=== PATIENT | female | born 1935 | race Caucasian/White ===

== ENCOUNTER 2024-02-28 19:43 | Inpatient (IN) | payer OTHER, MEDICARE ==
--- OUTSIDE RECORDS SUMMARY | 2024-02-28 19:49 | XMS REPORT | Continuity of Care Document ---
Author Name Unknown Address [address] [facility]. [address] [place] [address] [facility] thconnect Address [address] [facility] [address] [place] [address] Care Team Providers Care Signing Agent Name Role Phone KIRBY MARMOLEJO Primary Care Physician Unavaila Marvin Krueger Attending Clinician Unavailable KG WATTERS Attending Clinician Unavailable Mary Kay Cam Attending Clinician Unavailable GERARDO PADILLA Attending Clinician Unavail able Gerardo Padilla DPM Attending Clinician [phone] MAR_MATTHEW_Dorina Attending Clinician Unavailab JEANETTE Hall Attending Clinician Unavailable PB LEWIS Attending Clinician Unavailable Pcp-Non Staff, Attending Clinician UnavailNAOMI Allen Attending Clinician UnavailMERCEDES Cornejo Attending Clinician Unavail able CHUCK YIN Attending Clinician Unavailable Qamar Gutiérrez Admitting Clinician Unavailable KG WATTERS Admitting Clinician Unavailable Mary Kay Cam Admitting Clinician Unavailable MAR_SWHAWPRC_Dorina Admitting Clinician Unavailab JEANETTE Hall Admitting Clinician Unavailable NAOMI AYALA Admitting Clinician UnavailMERCEDES Cornejo Admitting Clinician Unavail able Payers Payer Name Policy Type Policy Number Effective Date Expirati on Date Source 1 Yenifer [id number] MEDICARE PART A AND B Medicare [id number] 2023 00:00:00 A[employer] Other [id number] 2023 00:00:00 [place] [employer] [id number] 2000 00:00:00 [employer] HEALTHCARE OPTIONS (MEDICARE SUPPLEMENT) [id number] 2023 00:00:00 2 C [id number] Problems Condition Name Condition Details Condition Category Status Onset Date Resolution Date Last Treatment Date Treating Clinician Comments Source 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 Problem Active 08-02 00:00: 00 [facility] 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 Muscle Dysfunctio n - Overactive Problem Active 08-02 00:00: 00 [facility] [id number] Other spondylosi s, lumbar region Problem [facility] [id number] [place], post-strok e Problem [facility] Chronic pain syndrome Chronic pain syndrome Problem [facility] Lumbar radiculopa thy Problem Active [facility] [place] Cerebrovas cular accident (CVA) Problem Active [facility] Hypertensi on Problem Active [facility] Hyperlipid emia Problem Active [facility] Left upper extremity numbness Problem Inactiv e [facility] [place] Facial droop Problem Inactiv e [facility] Health Allergies, Adverse Reactions, Alerts Allergy Name Allergy Type Status Severity Reaction(s) Onset Date Inactive Date Treating Clinician Comments Source aspirin DA Active [facility] CONTRAINDICA MARICRUZ/NO BLOOD THINNING DRUGS 2023-04 00:00: 00 [facility] dexameth asone DA Active SV CONTRAINDICA MARICRUZ/NO BLOOD THINNING DRUGS 2023-04 00:00: 00 [facility] nabumeto ne DA Active SV CONTRAINDICA MARICRUZ/NO BLOOD THINNING DRUGS 2023-04 015 00:00: 00 [facility] fish oil FA Active SV CONTRAINDICA MARICRUZ/NO BLOOD THINNING DRUGS 2023-04 015 00:00: 00 [facility] aspirin DA Active U UNKNOWN 2023-04 0-02 00:00: 00 [facility] dexameth asone DA Active U UNKNOWN 2023-04 0-02 00:00: 00 [facility] nabumeto ne DA Active U UNKNOWN 2023-04 002 00:00: 00 [facility] fish oil FA Active U UNKNOWN 2023-04 002 00:00: 00 [facility] GABAPENT IN Drug Allergy Active U Not Specified 2022-04 13:34: 55 [facility] GABAPENT IN Drug Allergy Active U Not Specified 2022-04 13:34: 55 [facility] GABAPENT IN Drug Allergy Active U Not Specified 2022-04 13:34: 55 [facility] [facility] GABAPENT IN Drug Allergy Active U Not Specified 2022-04 13:34: 55 [facility] Dyazide Drug Allergy Active U Not Specified 2022-04 13:34: 54 [facility] [facility] Relafen Drug Allergy Active U Not Specified 2022-04 13:34: 54 [facility] [facility] No Known Allergie s NA Active 06-09 16:22: 57 [facility] [facility] No Known Allergie s NA Active 06-09 16:19: 02 [facility] No Known Allergie s NA Active 06-09 16:16: 13 [facility] No Known Allergie s NA Active 06-09 15:45: 46 [facility] [facility] No Known Allergie s NA Active 2-20 15:45: 32 [facility] [place] HCTZ Drug Allergy Active U unknown 2-20 00:00: 00 [facility] [place] HCTZ Drug Allergy Active U unknown 220 00:00: 00 [facility] [place] HCTZ Drug Allergy Active U unknown 2- 00:00: 00 [facility] [place] HCTZ Drug Allergy Active U unknown 2 00:00: 00 [facility] [place] HCTZ Drug Allergy Active U unknown 2 00:00: 00 [facility] [place] HCTZ Drug Allergy Active U unknown 06-09 00:00: 00 [facility] [place] HCTZ Drug Allergy Active U unknown 2 00:00: 00 [facility] [place] NABUMETO NE Drug Allergy Active U unknown 220 00:00: 00 [facility] [place] TRIAMTER SAM Drug Allergy Active U unknown 220 00:00: 00 [facility] [place] GABAPENT IN Drug Allergy Active U ankle sweliing dry mouth 220 00:00: 00 [facility] [place] HCTZ Drug Allergy Active U unknown 2-20 00:00: 00 [facility] [place] HCTZ Drug Allergy Active U unknown 2-20 00:00: 00 [facility] [place] HCTZ Drug Allergy Active U unknown 2-20 00:00: 00 [facility] [place] HCTZ Drug Allergy Active U unknown 2-20 00:00: 00 [facility] [place] HCTZ Drug Allergy Active U unknown 2-20 00:00: 00 [facility] [place] HCTZ Drug Allergy Active U unknown 2-20 00:00: 00 [facility] HCTZ Drug Allergy Active U unknown 2-20 00:00: 00 [facility] [place] HCTZ Drug Allergy Active U unknown 2-20 00:00: 00 [facility] [place] HCTZ Drug Allergy Active U unknown 2-20 00:00: 00 [facility] [place] HCTZ Drug Allergy Active U unknown 2-20 00:00: 00 [facility] [place] HCTZ Drug Allergy Active U unknown 2-20 00:00: 00 [facility] [place] HCTZ Drug Allergy Active U unknown 2-20 00:00: 00 [facility] [place] HCTZ Drug Allergy Active U unknown 2-20 00:00: 00 [facility] [place] HCTZ Drug Allergy Active U unknown 2-20 00:00: 00 [facility] [place] HCTZ Drug Allergy Active U unknown 2-20 00:00: 00 [facility] [place] HCTZ Drug Allergy Active U unknown 2-20 00:00: 00 [facility] [place] HCTZ Drug Allergy Active U unknown 2-20 00:00: 00 [facility] [place] HCTZ Drug Allergy Active U unknown 2-20 00:00: 00 [facility] [place] HCTZ Drug Allergy Active U unknown 2-20 00:00: 00 [facility] [place] HCTZ Drug Allergy Active U unknown 2-20 00:00: 00 [facility] [place] HCTZ Drug Allergy Active U unknown 2-20 00:00: 00 [facility] [place] HCTZ Drug Allergy Active U unknown 2-20 00:00: 00 [facility] HCTZ Drug Allergy Active U unknown 2-20 00:00: 00 [facility] [place] HCTZ Drug Allergy Active U unknown 2-20 00:00: 00 [facility] [place] HCTZ Drug Allergy Active U unknown 2-20 00:00: 00 [facility] [place] HCTZ Drug Allergy Active U unknown 2-20 00:00: 00 [facility] [place] HCTZ Drug Allergy Active U unknown 2-20 00:00: 00 [facility] [place] HCTZ Drug Allergy Active U unknown 2-20 00:00: 00 [facility] [place] HCTZ Drug Allergy Active U unknown 2-20 00:00: 00 [facility] [place] Hydrochl orothiaz jovan Allergy to substanc e Active Unknown 2-12 00:00: 00 [facility] Triamter sam Allergy to substanc e Active Unknown 2-12 00:00: 00 [facility] Nabumeto ne Allergy to substanc e Active Unknown 2-12 00:00: 00 [facility] Gabapent in Propensi ty to adverse reaction s Active Moderate 0 2-12 00:00: 00 [facility] ALLERGIE S NOT ON FILE SYSTEMIC Active [facility] Non-ster oidal anti-inf lammator y agent (FN) Non-ster oidal anti-inf lammator y agent (FN) Active Unknown [facility] nabumeto ne nabumeto ne Active Unknown [facility] rizatrip montez rizatrip montez Active Unknown [facility] ALLERGIE S NOT ON FILE SYSTEMIC Active [facility] Aspirin Allergy to substanc e Active [facility] Fish Oil Allergy to substanc e Active [facility] Maxidex Allergy to substanc e Active [facility] Relafen Allergy to substanc e Active [facility] Social History Social Habit Start Date Stop Date Quantity Comments Source Gender identity 2023-07-12 03:40:34 Identifies as female gender (finding) [facility] ASSERTION Possible [facility] Sexual orientation M ruba [facility] Sex Assigned At [facility] History of Tobacco Use [facility] Smoking Status Start Date Stop Date Source Tobacco smoking consumption unknown [facility] Never Smoker [facility] Medications Ordered Medication Name Filled Medication Name Start Date Stop Date Current Medication? Ordering Clinician Indication Dosage Frequency Signature (SIG) Comments Components Source traMADol HCl 50 MG traMADol HCl 50 MG 08-05 00:00: 00 No 1{table t_as_ne eded} QD traMADol HCl 50 MG Clopidogrel Bisulfate (Plavix) 75 Mg TAB 2 12:25: 00 No 75mg Daily [facility] amlodipine 5 mg tablet TAKE 1 TABLET BY MOUTH DAILY amlodipine 5 mg tablet TAKE 1 TABLET BY MOUTH DAILY No amlodipine 5 mg tablet TAKE 1 TABLET BY MOUTH DAILY [facility] biotin biotin No biotin [facility] Q-10 Co Q-10 No Co Q-10 [facility] levothyroxi ne levothyroxi ne No levothyrox ine [facility] lisinopril 20 mg tablet TAKE 1 TABLET BY MOUTH TWICE DAILY lisinopril 20 mg tablet TAKE 1 TABLET BY MOUTH TWICE DAILY No lisinopril 20 mg tablet TAKE 1 TABLET BY MOUTH TWICE DAILY [facility] melatonin melatonin No melatonin [facility] Metamucil Metamucil No Metamucil [facility] One Daily Womens 50 Plus One Daily Womens 50 Plus No One Daily Womens 50 Plus [facility] pantoprazol e 40 mg tablet,ramona yed release pantoprazol e 40 mg tablet,ramona yed release No pantoprazo le 40 mg tablet,del ayed release [facility] ropinirole 1 mg tablet TAKE 1 TABLET BY MOUTH EVERY NIGHT AT BEDTIME ropinirole 1 mg tablet TAKE 1 TABLET BY MOUTH EVERY NIGHT AT BEDTIME No ropinirole 1 mg tablet TAKE 1 TABLET BY MOUTH EVERY NIGHT AT BEDTIME [facility] simvastatin 20 mg tablet TAKE 1 TABLET BY MOUTH EVERY NIGHT AT BEDTIME simvastatin 20 mg tablet TAKE 1 TABLET BY MOUTH EVERY NIGHT AT BEDTIME No simvastati n 20 mg tablet TAKE 1 TABLET BY MOUTH EVERY NIGHT AT BEDTIME [facility] Tylenol Arthritis Pain Tylenol Arthritis Pain No Tylenol Arthritis Pain [facility] Vitamin D3 Vitamin D3 No Vitamin D3 [facility] gabapentin 300 mg capsule TAKE 1 CAPSULE BY MOUTH TWICE DAILY gabapentin 300 mg capsule TAKE 1 CAPSULE BY MOUTH TWICE DAILY No gabapentin 300 mg capsule TAKE 1 CAPSULE BY MOUTH TWICE DAILY [facility] tramadol 50 mg tablet TAKE 1 TABLET BY MOUTH DAILY NEEDED tramadol 50 mg tablet TAKE 1 TABLET BY MOUTH DAILY NEEDED No tramadol 50 mg tablet TAKE 1 TABLET BY MOUTH DAILY NEEDED [facility] spironolact one 25 mg tablet TAKE 1 TABLET BY MOUTH DAILY spironolact one 25 mg tablet TAKE 1 TABLET BY MOUTH DAILY No spironolac tone 25 mg tablet TAKE 1 TABLET BY MOUTH DAILY [facility] baclofen 10 mg tablet TAKE 1 TABLET BY MOUTH AT BEDTIME baclofen 10 mg tablet TAKE 1 TABLET BY MOUTH AT BEDTIME No baclofen 10 mg tablet TAKE 1 TABLET BY MOUTH AT BEDTIME [facility] escitalopra m 5 mg tablet TAKE 1 TABLET BY MOUTH EVERY DAY escitalopra m 5 mg tablet TAKE 1 TABLET BY MOUTH EVERY DAY No escitalopr am 5 mg tablet TAKE 1 TABLET BY MOUTH EVERY DAY [facility] levothyroxi ne 50 mcg tablet TAKE 1 TABLET BY MOUTH DAILY 30 MINUTES BEFORE BREAKFAST levothyroxi ne 50 mcg tablet TAKE 1 TABLET BY MOUTH DAILY 30 MINUTES BEFORE BREAKFAST No levothyrox ine 50 mcg tablet TAKE 1 TABLET BY MOUTH DAILY 30 MINUTES BEFORE BREAKFAST [facility] Acetaminoph en (Tylenol) 500 Mg TAB No 500mg Twice A Day as needed for Pain [facility] Acetaminoph en/Diphenhy dramine Hcl (Tylenol Pm Es) 1 Each TAB No 1 Bedtime [facility] Baclofen (Lioresal) 10 Mg TAB No 10mg Every Evening [facility] Biotin No 2000 Daily [facility] Calcium/Vit cruz D (Calcium 600 + Vit D 400 Tablet) 600 Mg TAB No 600mg Every Other Day [facility] Clonidine (Catapres) 0.1 Mg TAB No .1mg Every 12 Hours as needed for Bp >160/100 [facility] Coenzyme Q10 No 100mg Daily [facility] Fish Oil (Santo 3) 1,000 Mg CAP No 2000mg Daily [facility] Fluticasone Propionate (Flonase 0.05% Jarocho Spr) 16 Gm INHA No 1 Twice A Day [facility] Guaifenesin (Mucinex) 600 Mg TABCR No 600mg Every 12 Hours as needed for Congestion [facility] Levothyroxi ne Sodium (Synthroid) 50 Mcg TABLET No 50 Daily Before Breakfast [facility] Lisinopril (Zestril) 20 Mg TAB No 20mg Twice A Day [facility] Melatonin No 5mg Bedtime as needed for Insomnia [facility] Multivitami ns/Minerals (Centrum Silver) 1 Tab TABLET No 1 Daily [facility] Propranolol Hcl (Inderal) 80 Mg TAB No 80mg Every Morning [facility] Ropinirole Hcl (Requip) 1 Mg TAB No 1mg Bedtime [facility] Simvastatin (Zocor) 20 Mg TAB No 20mg Every Evening [facility] Spironolact one (Aldactone) 25 Mg TAB No 25mg Every Morning [facility] Baclofen 10 MG Baclofen 10 MG No Baclofen 10 MG rOPINIRole HCl 1 MG rOPINIRole HCl 1 MG No rOPINIRole HCl 1 MG Synthroid 50 MCG Synthroid 50 MCG No Synthroid 50 MCG Escitalopra m Oxalate 5 MG Escitalopra m Oxalate 5 MG No Escitalopr am Oxalate 5 MG Simvastatin 20 MG Simvastatin 20 MG No Simvastati n 20 MG amLODIPine Besylate 5 MG amLODIPine Besylate 5 MG No amLODIPine Besylate 5 MG Gabapentin 300 MG Gabapentin 300 MG No 1{capsu le} TID Gabapentin 300 MG Lisinopril 20 MG Lisinopril 20 MG No Lisinopril 20 MG Spironolact one 25 MG Spironolact one 25 MG No Spironolac tone 25 MG Vitamin D 06-09 00:00 :00 No 25 Daily [facility] Excedrin Migraine 06-09 00:00 :00 No 1 Daily as needed for Headache [facility] Lisinopril (Zestril) 5 Mg TAB 05-31 00:00 :00 No 10mg Bedtime [facility] A Red 05-31 00:00 :00 No 1 Twice A Day [facility] Levoxyl 05-31 00:00 :00 No 50 Daily [facility] Losartan Potassium (Cozaar) 100 Mg TAB 06-01 00:00 :00 No 100mg Daily [facility] Potassium Chloride (Klor-Con 10) 10 Meq TABCR 06-01 00:00 :00 No 20 Daily [facility] Aspirin (Aspirin Chewable) 81 Mg CHEW 06-01 00:00 :00 No 81mg Daily [facility] Flaxseed (Flaxseed Oil) 1,000 Mg CAP 06-01 00:00 :00 No 1000mg Daily [facility] Vital Signs Vital Name Observation Time Observation Value Comments S justa height 2023-11-18 15:15:00 66 [in_i] [facility] weight-kg 2023-11-18 15:15:00 56.7 kg [facility] bmi 2023-11-18 15:15:00 20.17 kg/m2 [facility] heart rate 2023-11-18 15:15:00 80 /min [facility] blood pressure systolic 2023-11-18 15:15:00 124 mm[Hg] [facility] blood pressure diastolic 2023-11-18 15:15:00 79 mm[Hg] [facility] Height 2023-09-08 00:00:00 66 [in_i] [facility] BMI (Body Mass Index) 2023-09-08 00:00:00 20.5 kg/m2 [facility] BP Diastolic 2023-09-08 00:00:00 83 mm[Hg] [facility] Body Weight 2023-09-08 00:00:00 127 [lb_av] [facility] BP Systolic 2023-09-08 00:00:00 121 mm[Hg] [facility] Body Weight 2023-08-18 00:00:00 125 [lb_av] [facility] BP Diastolic 2023-08-18 00:00:00 79 mm[Hg] [facility] BP Systolic 2023-08-18 00:00:00 138 mm[Hg] [facility] BMI (Body Mass Index) 2023-08-18 00:00:00 20.2 kg/m2 [facility] Height 2023-08-18 00:00:00 66 [in_i] [facility] Height 2023-08-03 00:00:00 66 [in_i] [facility] BMI (Body Mass Index) 2023-08-03 00:00:00 20.2 kg/m2 [facility] Body Weight 2023-08-03 00:00:00 125 [lb_av] [facility] BP Diastolic 2023-08-03 00:00:00 85 mm[Hg] [facility] BP Systolic 2023-08-03 00:00:00 127 mm[Hg] [facility] BP Diastolic 2020-06-09 12:00:00 84 mm[Hg] [facility] [employer] BP Systolic 2020-06-09 12:00:00 149 mm[Hg] [facility] [employer] Heart Rate 2020-06-09 12:00:00 66 /min [employer] Respiratory rate 2020-06-09 12:00:00 13 /min [employer] Body Temperature 2020-06-09 12:00:00 97.9 [degF] [facility] BP Diastolic 2020-06-09 07:00:00 79 mm[Hg] [facility] [employer] BP Systolic 2020-06-09 07:00:00 123 mm[Hg] [facility] [employer] Heart Rate 2020-06-09 07:00:00 75 /min [employer] Respiratory rate 2020-06-09 07:00:00 15 /min [employer] Body Temperature 2020-06-09 07:00:00 98.1 [degF] [facility] [employer] BP Diastolic 2020-06-09 06:15:00 86 mm[Hg] [facility] [employer] BP Systolic 2020-06-09 06:15:00 163 mm[Hg] [facility] [employer] BP Diastolic 2020-06-09 04:00:00 80 mm[Hg] [facility] [employer] BP Systolic 2020-06-09 04:00:00 164 mm[Hg] [facility] [employer] Heart Rate 2020-06-09 04:00:00 85 /min [employer] Respiratory rate 2020-06-09 04:00:00 20 /min [employer] Body Temperature 2020-06-09 04:00:00 97.8 [degF] [facility] BP Diastolic 2020-06-09 00:00:00 87 mm[Hg] [facility] [employer] BP Systolic 2020-06-09 00:00:00 154 mm[Hg] [facility] Heart Rate 2020-06-09 00:00:00 72 /min [employer] Respiratory rate 2020-06-09 00:00:00 20 /min [facility] Body Temperature 2020-06-09 00:00:00 97.6 [degF] [facility] BP Diastolic 2020-06-08 20:00:00 89 mm[Hg] [facility] BP Systolic 2020-06-08 20:00:00 159 mm[Hg] [facility] Heart Rate 2020-06-08 20:00:00 68 /min [facility] Respiratory rate 2020-06-08 20:00:00 20 /min [facility] Body Temperature 2020-06-08 20:00:00 97.6 [degF] [facility] BP Diastolic 2020-06-08 11:00:00 97 mm[Hg] [facility] BP Systolic 2020-06-08 11:00:00 177 mm[Hg] [facility] Heart Rate 2020-06-08 11:00:00 66 /min [facility] Respiratory rate 2020-06-08 11:00:00 12 /min [facility] Body Temperature 2020-06-08 11:00:00 98.0 [degF] [facility] BP Diastolic 2020-06-08 07:00:00 91 mm[Hg] [facility] BP Systolic 2020-06-08 07:00:00 157 mm[Hg] [facility] Heart Rate 2020-06-08 07:00:00 77 /min [facility] rate 2020-06-08 07:00:00 15 /min [facility] Body Temperature 2020-06-08 07:00:00 98.2 [degF] [facility] BP Diastolic 2020-06-08 04:00:00 76 mm[Hg] [facility] BP Systolic 2020-06-08 04:00:00 126 mm[Hg] [facility] Heart Rate 2020-06-08 04:00:00 83 /min [facility] Respiratory rate 2020-06-08 04:00:00 20 /min [facility] Body Temperature 2020-06-08 04:00:00 97.8 [degF] [facility] BP Diastolic 2020-06-08 00:00:00 85 mm[Hg] [facility] BP Systolic 2020-06-08 00:00:00 145 mm[Hg] [facility] Heart Rate 2020-06-08 00:00:00 76 /min [facility] Respiratory rate 2020-06-08 00:00:00 20 /min [facility] Body Temperature 2020-06-08 00:00:00 97.8 [degF] [facility] BP Diastolic 2020-06-07 20:00:00 85 mm[Hg] [facility] BP Systolic 2020-06-07 20:00:00 169 mm[Hg] [facility] Heart Rate 2020-06-07 20:00:00 72 /min [facility] Respiratory rate 2020-06-07 20:00:00 20 /min [facility] Body Temperature 2020-06-07 20:00:00 97.2 [degF] [facility] BP Diastolic 2020-06-07 17:09:00 77 mm[Hg] [facility] BP Systolic 2020-06-07 17:09:00 123 mm[Hg] [facility] Heart Rate 2020-06-07 17:09:00 67 /min [facility] Respiratory rate 2020-06-07 17:09:00 18 /min [facility] Body Temperature 2020-06-07 17:09:00 98.4 [degF] [facility] BP Diastolic 2020-06-07 14:27:00 80 mm[Hg] [facility] BP Systolic 2020-06-07 14:27:00 169 mm[Hg] [facility] BP Diastolic 2020-06-07 12:00:00 93 mm[Hg] [facility] [facility] BP Systolic 2020-06-07 12:00:00 167 mm[Hg] [facility] Heart Rate 2020-06-07 12:00:00 81 /min [facility] Respiratory rate 2020-06-07 12:00:00 16 /min [facility] Body Temperature 2020-06-07 12:00:00 98.4 [degF] [facility] Heart Rate 2020-06-07 10:00:00 81 /min [facility] BP Diastolic 2020-06-07 08:00:00 80 mm[Hg] [facility] BP Systolic 2020-06-07 08:00:00 184 mm[Hg] [facility] Heart Rate 2020-06-07 08:00:00 103 /min [facility] Respiratory rate 2020-06-07 08:00:00 20 /min [facility] Body Temperature 2020-06-07 08:00:00 98.0 [degF] [facility] BP Diastolic 2020-06-07 04:00:00 77 mm[Hg] [facility] BP Systolic 2020-06-07 04:00:00 166 mm[Hg] [facility] Heart Rate 2020-06-07 04:00:00 99 /min [facility] Respiratory rate 2020-06-07 04:00:00 20 /min [facility] Body Temperature 2020-06-07 04:00:00 98.2 [degF] [facility] BP Diastolic 2020-06-07 00:00:00 83 mm[Hg] [facility] BP Systolic 2020-06-07 00:00:00 168 mm[Hg] [facility] Heart [facility] 2020-06-07 00:00:00 90 /min [facility] Respiratory rate 2020-06-07 00:00:00 20 /min [facility] Body Temperature 2020-06-07 00:00:00 97.8 [degF] [facility] BP Diastolic 2020-06-06 20:00:00 96 mm[Hg] [facility] BP Systolic 2020-06-06 20:00:00 188 mm[Hg] [facility] Heart Rate 2020-06-06 20:00:00 84 /min [facility] Respiratory rate 2020-06-06 20:00:00 20 /min [facility] Body Temperature 2020-06-06 20:00:00 98.6 [degF] [facility] BP Diastolic 2020-06-06 16:00:00 103 mm[Hg] [facility] BP Systolic 2020-06-06 16:00:00 200 mm[Hg] [facility] Heart Rate 2020-06-06 16:00:00 93 /min [facility] Respiratory rate 2020-06-06 16:00:00 16 /min [facility] Body Temperature 2020-06-06 16:00:00 98.2 [degF] [facility] BP Diastolic 2020-06-06 12:00:00 118 mm[Hg] [facility] BP Systolic 2020-06-06 12:00:00 210 mm[Hg] [facility] Heart Rate 2020-06-06 12:00:00 71 /min [facility] Respiratory rate 2020-06-06 12:00:00 18 /min [facility] Body Temperature 2020-06-06 12:00:00 97.9 [degF] [facility] BP Diastolic 2020-06-06 08:00:00 81 mm[Hg] [facility] BP Systolic 2020-06-06 08:00:00 188 mm[Hg] [facility] Heart [facility] 2020-06-06 08:00:00 96 /min [facility] Respiratory rate 2020-06-06 08:00:00 20 /min [facility] Body Temperature 2020-06-06 08:00:00 97.5 [degF] [facility] BP Diastolic 2020-06-06 04:00:00 80 mm[Hg] [facility] BP Systolic 2020-06-06 04:00:00 165 mm[Hg] [facility] Heart Rate 2020-06-06 04:00:00 86 /min [facility] Respiratory rate 2020-06-06 04:00:00 18 /min [facility] Body Temperature 2020-06-06 04:00:00 97.8 [degF] [facility] BP Diastolic 2020-06-06 00:00:00 81 mm[Hg] [facility] BP Systolic 2020-06-06 00:00:00 133 mm[Hg] [facility] Heart Rate 2020-06-06 00:00:00 71 /min [facility] Respiratory rate 2020-06-06 00:00:00 18 /min [facility] Body Temperature 2020-06-06 00:00:00 98.2 [degF] [facility] BP Diastolic 2020-06-05 20:00:00 92 mm[Hg] [facility] BP Systolic 2020-06-05 20:00:00 173 mm[Hg] [facility] Heart Rate 2020-06-05 20:00:00 77 /min [facility] Respiratory rate 2020-06-05 20:00:00 18 /min [facility] Body Temperature 2020-06-05 20:00:00 98.5 [degF] [facility] BP Diastolic 2020-06-05 16:00:00 96 mm[Hg] [facility] BP Systolic 2020-06-05 16:00:00 183 mm[Hg] [facility] Respiratory rate 2020-06-05 16:00:00 16 /min [facility] Body Temperature 2020-06-05 16:00:00 97.9 [degF] [facility] BP Diastolic 2020-06-05 12:00:00 89 mm[Hg] [facility] BP Systolic 2020-06-05 12:00:00 163 mm[Hg] [facility] Heart Rate 2020-06-05 12:00:00 87 /min [facility] Respiratory rate 2020-06-05 12:00:00 20 /min [facility] Body Temperature 2020-06-05 12:00:00 97.6 [degF] [facility] BP Diastolic 2020-06-05 08:00:00 109 mm[Hg] [facility] BP Systolic 2020-06-05 08:00:00 168 mm[Hg] [facility] Heart Rate 2020-06-05 08:00:00 80 /min [facility] Respiratory rate 2020-06-05 08:00:00 18 /min [facility] Body Temperature 2020-06-05 08:00:00 98.0 [degF] [facility] BP Diastolic 2020-06-05 04:00:00 91 mm[Hg] [facility] BP Systolic 2020-06-05 04:00:00 166 mm[Hg] [facility] Heart Rate 2020-06-05 04:00:00 78 /min [facility] Respiratory rate 2020-06-05 04:00:00 20 /min [facility] Body Temperature 2020-06-05 04:00:00 97.5 [degF] [facility] BP Diastolic 2020-06-05 00:00:00 79 mm[Hg] [facility] BP Systolic 2020-06-05 00:00:00 138 mm[Hg] [facility] BP Diastolic 2020-06-04 20:00:00 112 mm[Hg] [facility] BP Systolic 2020-06-04 20:00:00 198 mm[Hg] [facility] Heart Rate 2020-06-04 20:00:00 77 /min [facility] Respiratory rate 2020-06-04 20:00:00 20 /min [facility] Body Temperature 2020-06-04 20:00:00 97.9 [degF] [facility] BP Diastolic 2020-06-04 16:13:00 92 mm[Hg] [facility] BP Systolic 2020-06-04 16:13:00 186 mm[Hg] [facility] Heart Rate 2020-06-04 16:13:00 69 /min [facility] Respiratory rate 2020-06-04 16:13:00 22 /min [facility] Body Temperature 2020-06-04 16:13:00 98.2 [degF] [facility] BP Diastolic 2020-06-04 12:34:00 93 mm[Hg] [facility] BP Systolic 2020-06-04 12:34:00 172 mm[Hg] [facility] Heart [facility] 2020-06-04 12:34:00 68 /min [facility] Respiratory rate 2020-06-04 12:34:00 22 /min [facility] Body Temperature 2020-06-04 12:34:00 97.5 [degF] [facility] BP Diastolic 2020-06-04 04:00:00 95 mm[Hg] [facility] BP Systolic 2020-06-04 04:00:00 180 mm[Hg] [facility] Heart Rate 2020-06-04 04:00:00 80 /min [facility] Respiratory rate 2020-06-04 04:00:00 20 /min [facility] Body Temperature 2020-06-04 04:00:00 97.6 [degF] [facility] BP Diastolic 2020-06-04 00:00:00 88 mm[Hg] [facility] BP Systolic 2020-06-04 00:00:00 161 mm[Hg] [facility] Heart [facility] 2020-06-04 00:00:00 75 /min [facility] Respiratory rate 2020-06-04 00:00:00 20 /min [facility] Body Temperature 2020-06-04 00:00:00 97.9 [degF] [facility] BP Diastolic 2020-06-03 20:00:00 104 mm[Hg] [facility] BP Systolic 2020-06-03 20:00:00 214 mm[Hg] [facility] Heart Rate 2020-06-03 20:00:00 78 /min [facility] Respiratory rate 2020-06-03 20:00:00 20 /min [facility] Body Temperature 2020-06-03 20:00:00 97.9 [degF] [facility] BP Diastolic 2020-06-03 16:00:00 100 mm[Hg] [facility] BP Systolic 2020-06-03 16:00:00 180 mm[Hg] [facility] Heart [facility] 2020-06-03 16:00:00 90 /min [facility] Respiratory rate 2020-06-03 16:00:00 16 /min [facility] Body Temperature 2020-06-03 16:00:00 97.9 [degF] [facility] BP Diastolic 2020-06-03 13:51:00 103 mm[Hg] [facility] BP Systolic 2020-06-03 13:51:00 205 mm[Hg] [facility] Heart [facility] 2020-06-03 13:51:00 89 /min [facility] BP Diastolic 2020-06-03 13:14:00 99 mm[Hg] [email or web address] BP Systolic 2020-06-03 13:14:00 184 mm[Hg] [facility] BP Diastolic 2020-06-03 12:01:00 105 mm[Hg] [facility] BP Systolic 2020-06-03 12:01:00 180 mm[Hg] [facility] Heart Rate 2020-06-03 12:01:00 99 /min [facility] BP Diastolic 2020-06-03 09:14:00 97 mm[Hg] [facility] BP Systolic 2020-06-03 09:14:00 193 mm[Hg] [facility] Heart Rate 2020-06-03 09:14:00 102 /min [facility] Heart Rate 2020-06-03 08:05:00 96 /min [facility] BP Diastolic 2020-06-03 07:00:00 116 mm[Hg] [facility] BP Systolic 2020-06-03 07:00:00 216 mm[Hg] [facility] Heart Rate 2020-06-03 07:00:00 102 /min [facility] Respiratory rate 2020-06-03 07:00:00 20 /min [facility] Body Temperature 2020-06-03 07:00:00 97.7 [degF] [facility] BP Diastolic 2020-06-03 04:00:00 98 mm[Hg] [facility] BP Systolic 2020-06-03 04:00:00 165 mm[Hg] [facility] Heart [facility] 2020-06-03 04:00:00 100 /min [facility] Respiratory rate 2020-06-03 04:00:00 20 /min [facility] Body Temperature 2020-06-03 04:00:00 98.0 [degF] [facility] BP Diastolic 2020-06-03 00:00:00 118 mm[Hg] [facility] BP Systolic 2020-06-03 00:00:00 186 mm[Hg] [facility] Heart Rate 2020-06-03 00:00:00 114 /min [facility] Respiratory rate 2020-06-03 00:00:00 20 /min [facility] Body Temperature 2020-06-03 00:00:00 98.0 [degF] [facility] BP Diastolic 2020-06-02 20:00:00 109 mm[Hg] [facility] BP Systolic 2020-06-02 20:00:00 188 mm[Hg] [facility] Heart [facility] 2020-06-02 20:00:00 103 /min [facility] Respiratory rate 2020-06-02 20:00:00 20 /min [facility] Body Temperature 2020-06-02 20:00:00 97.6 [degF] [facility] BP Diastolic 2020-06-02 16:00:00 99 mm[Hg] [facility] BP Systolic 2020-06-02 16:00:00 182 mm[Hg] [facility] Heart Rate 2020-06-02 16:00:00 95 /min [facility] Respiratory rate 2020-06-02 16:00:00 20 /min [facility] Body Temperature 2020-06-02 16:00:00 97.6 [degF] [facility] BP Diastolic 2020-06-02 12:00:00 113 mm[Hg] [facility] BP Systolic 2020-06-02 12:00:00 185 mm[Hg] [facility] Heart Rate 2020-06-02 12:00:00 106 /min [facility] Respiratory rate 2020-06-02 12:00:00 18 /min [facility] Body Temperature 2020-06-02 12:00:00 97.7 [degF] [facility] Heart Rate 2020-06-02 08:45:00 112 /min [facility] BP Diastolic 2020-06-02 08:00:00 95 mm[Hg] [facility] BP Systolic 2020-06-02 08:00:00 155 mm[Hg] [facility] Heart [facility] 2020-06-02 08:00:00 100 /min [facility] 2020-06-02 08:00:00 20 /min [facility] Body Temperature 2020-06-02 08:00:00 98.2 [degF] [facility] BP Diastolic 2020-06-02 04:00:00 71 mm[Hg] [facility] BP Systolic 2020-06-02 04:00:00 110 mm[Hg] [facility] Heart Rate 2020-06-02 04:00:00 88 /min [facility] Respiratory rate 2020-06-02 04:00:00 18 /min [facility] Body Temperature 2020-06-02 04:00:00 97.6 [degF] [facility] BP Diastolic 2020-06-02 00:00:00 91 mm[Hg] [facility] BP Systolic 2020-06-02 00:00:00 171 mm[Hg] [facility] Heart Rate 2020-06-02 00:00:00 84 /min [facility] Respiratory rate 2020-06-02 00:00:00 18 /min [facility] Body Temperature 2020-06-02 00:00:00 97.4 [degF] [facility] BP Diastolic 2020-06-01 20:00:00 99 mm[Hg] [facility] BP Systolic 2020-06-01 20:00:00 155 mm[Hg] [facility] Heart Rate 2020-06-01 20:00:00 93 /min [facility] Respiratory rate 2020-06-01 20:00:00 22 /min [facility] Body Temperature 2020-06-01 20:00:00 98.3 [degF] [facility] BP Diastolic 2020-06-01 16:00:00 87 mm[Hg] [facility] BP Systolic 2020-06-01 16:00:00 152 mm[Hg] [facility] Heart [facility] 2020-06-01 16:00:00 76 /min [facility] Respiratory rate 2020-06-01 16:00:00 18 /min [facility] Body Temperature 2020-06-01 16:00:00 97.6 [degF] [facility] BP Diastolic 2020-06-01 12:00:00 91 mm[Hg] [facility] BP Systolic 2020-06-01 12:00:00 161 mm[Hg] [facility] Heart Rate 2020-06-01 12:00:00 83 /min [facility] Respiratory rate 2020-06-01 12:00:00 20 /min [facility] Body Temperature 2020-06-01 12:00:00 98.8 [degF] [facility] BP Diastolic 2020-06-01 08:00:00 81 mm[Hg] [facility] BP Systolic 2020-06-01 08:00:00 137 mm[Hg] [facility] Heart [facility] 2020-06-01 08:00:00 87 /min [facility] Respiratory rate 2020-06-01 08:00:00 20 /min [facility] Body Temperature 2020-06-01 08:00:00 97.4 [degF] [facility] BP Diastolic 2020-06-01 04:00:00 73 mm[Hg] [facility] BP Systolic 2020-06-01 04:00:00 119 mm[Hg] [facility] Heart [facility] 2020-06-01 04:00:00 80 /min [facility] Respiratory rate 2020-06-01 04:00:00 18 /min [facility] Body Temperature 2020-06-01 04:00:00 97.5 [degF] [facility] BP Diastolic 2020-06-01 00:00:00 111 mm[Hg] [facility] BP Systolic 2020-06-01 00:00:00 203 mm[Hg] [facility] Heart [facility] 2020-06-01 00:00:00 102 /min [facility] Respiratory rate 2020-06-01 00:00:00 18 /min [facility] Body Temperature 2020-06-01 00:00:00 97.9 [degF] [facility] BP Diastolic 2020-05-31 20:00:00 90 mm[Hg] [facility] BP Systolic 2020-05-31 20:00:00 176 mm[Hg] [facility] Heart Rate 2020-05-31 20:00:00 79 /min [facility] 2020-05-31 20:00:00 18 /min [facility] Body Temperature 2020-05-31 20:00:00 97.7 [degF] [facility] BP Diastolic 2020-05-31 11:00:00 89 mm[Hg] [facility] BP Systolic 2020-05-31 11:00:00 158 mm[Hg] [facility] Heart Rate 2020-05-31 11:00:00 71 /min [facility] 2020-05-31 11:00:00 17 /min [facility] Body Temperature 2020-05-31 11:00:00 97.8 [degF] [facility] BP Diastolic 2020-05-31 07:00:00 93 mm[Hg] [facility] BP Systolic 2020-05-31 07:00:00 169 mm[Hg] [facility] Heart Rate 2020-05-31 07:00:00 85 /min [facility] Respiratory rate 2020-05-31 07:00:00 13 /min [facility] Body Temperature 2020-05-31 07:00:00 97.3 [degF] [facility] BP Diastolic 2020-05-31 04:00:00 88 mm[Hg] [facility] BP Systolic 2020-05-31 04:00:00 176 mm[Hg] [facility] Heart Rate 2020-05-31 04:00:00 73 /min [facility] Respiratory rate 2020-05-31 04:00:00 20 /min [facility] Body Temperature 2020-05-31 04:00:00 97.3 [degF] [facility] Heart Rate 2020-05-31 02:30:00 64 /min [facility] BP Diastolic 2020-05-31 02:07:00 89 mm[Hg] [facility] BP Systolic 2020-05-31 02:07:00 151 mm[Hg] [facility] Heart Rate 2020-05-31 02:07:00 64 /min [facility] Respiratory rate 2020-05-31 02:07:00 14 /min [facility] BP Diastolic 2020-05-31 01:45:00 117 mm[Hg] [facility] BP Systolic 2020-05-31 01:45:00 209 mm[Hg] [facility] Heart [facility] 2020-05-31 01:45:00 83 /min [facility] Respiratory rate 2020-05-31 01:45:00 18 /min [facility] Body Temperature 2020-05-31 01:45:00 97.5 [degF] [facility] Heart Rate 2020-05-31 00:20:00 69 /min [facility] BP Diastolic 2020-05-30 23:57:00 122 mm[Hg] [facility] BP Systolic 2020-05-30 23:57:00 165 mm[Hg] [facility] Heart [facility] 2020-05-30 23:57:00 83 /min [facility] Respiratory rate 2020-05-30 23:57:00 19 /min [facility] Procedures Procedure Date / Time Performed Performing Clinician Source [id number] 2024-02-02 00:00:00 [facility] [id number] 2024-02-02 00:00:00 [facility] [id number] 2024-02-02 00:00:00 [facility] [id number] 2024-02-02 00:00:00 [facility] [id number] 2024-02-02 00:00:00 [facility] [id number] 2024-02-02 00:00:00 [facility] Computed tomography of head or brain without contrast 2020-06-05 00:00:00 [facility] Transthoracic two dimensional echocardiography with color Doppler imaging and contrast 2020-05-31 00:00:00 [facility] Magnetic resonance imaging of brain without contrast 2020-05-31 00:00:00 [facility] Computed tomography of head or brain without contrast 2020-05-31 00:00:00 [facility] Occupational therapy evaluation and treatment 2020-05-31 00:00:00 [facility] Physical therapy evaluation and treatment 2020-05-31 00:00:00 [facility] Speech therapy evaluation and treatment 2020-05-31 00:00:00 [facility] Computed tomography of head or brain without contrast 2020-05-30 00:00:[address] [facility] [address] angiography of head 2020-05-30 00:00:[address] [facility] [address] angiography of neck 2020-05-30 00:00:00 [facility] ECG (electrocardiogram) 2020-05-30 00:00:00 [facility] X-ray of chest, single view 2020-05-30 00:00:00 [facility] Discectomy of Spine 2019-04-20 00:00:00 [facility] Procedure on Bladder 2015-04-20 00:00:00 [facility] Procedure on Urinary Bladder 2015-04-20 00:00:00 [facility] Procedure on Brain 2013-04-20 00:00:00 [facility] Cataract Surgery 1999-04-20 00:00:00 [facility] Hysterectomy - Abdominal 1982-04-20 00:00:00 [facility] Dilation and Curettage 1949-04-20 00:00:00 [facility] Tonsillectomy 1944-04-20 00:00:00 [facility] Encounters Start Date/Time End Date/Time Encounter Type Admission Type Attending [facility] Care Facility Care Department Encounter ID Source 2023-11-18 15:04:01 Outpatient Marvin Cruz [facility] [id number] [place] [facility] 2020-06-09 15:44:00 Inpatient 2 KG WATTERS KATERIN [facility] [id number] [facility] [place] 2024-02-02 06:38:00 2024-02-03 10:50:00 Inpatient Mary Kay Domingo [facility] [id number] [facility] 2024-01-25 09:28:17 2024-01-25 10:17:39 Outpatient Elective GERARDO PADILLAEOUT [facility] [id number] [facility] 2024-01-25 09:30:00 2024-01-25 09:40:00 Office Visit Gerardo Padilla [facility] [id number] [facility] 2024-01-20 00:00:00 2024-01-20 00:00:00 Mary Kay Cam MD: [address] [address] , Ph. [phone] [facility] _[place] Office* [id number] [facility] 2024-01-11 00:00:00 2024-01-11 00:00:00 Mary Kay Cam MD: [address], [address], [place] [address] , Ph. [phone] [facility] _Fanni Office* [id number] [facility] 2023-11-18 00:00:00 2023-11-18 00:00:00 Office Visit- Est Pt.- Level 4 [facility] [id number] [facility] simon 2023-11-16 12:42:49 2023-11-16 13:26:40 Outpatient Elective SELGERARDO MCINTOSH [facility] [id number] [facility] 2023-11-16 12:40:00 2023-11-16 13:26:40 Consult Gerardo Padilla [facility] [id number] Becky Moncada [facility] 2023-09-08 00:00:00 2023-09-08 00:00:00 Ruth Licona, SYSTEMS TEST ANALYST: [address], [address], [place] [address] , Ph. [phone] [facility] _[place]annin Office* [id number] [facility] 2023-08-18 00:00:00 2023-08-18 00:00:00 Ruth Licona, SYSTEMS TEST ANALYST: [address], [address], [place] [address] , Ph. [phone] [facility] _[place] Office* [id number] [facility] 2023-08-03 00:00:00 2023-08-03 00:00:00 Mary Kay Cam MD: [address], [address], [place] [address] , Ph. [phone] [facility] _[place] Office* [id number] [facility] 2023-07-30 00:00:00 2023-07-30 00:00:00 Outpatient [facility] [id number] [facility] 2023-07-09 00:00:00 2023-07-09 00:00:00 Outpatient [facility] _[facility] [id number] [facility] 2023-03-30 13:34:00 2023-03-30 19:55:00 Emergency 1 JEANETTE KIDD [facility] [id number] [facility] [place] 2022-10-07 17:06:00 2022-10-07 17:06:00 [id number]20 15:39:00 2022-05-20 15:39:00 Outpatient PB RAMIREZ [place] PERRY [id number] [facility] 2020-07-30 18:49:00 2020-07-30 18:49:00 Outpatient Elective Pcp-Non Staff, [facility] [id number] [id number] 2020-07-30 18:49:00 2020-07-30 18:49:00 Outpatient [facility] [id number] [facility] 2020-07-25 07:45:00 2020-07-25 07:45:00 Emergency AYALANAOMI KATERIN [facility] [id number] [facility]) 2020-05-31 00:50:00 2020-06-09 14:38:00 Discharged Inpatient ER [facility] [id number] [facility] 2019-08-03 12:44:00 2019-08-03 12:44:00 Outpatient LEW CHUCK YIN [id number] [facility] 2019-06-24 13:45:00 2019-07-19 00:01:00 Outpatient LEW CHUCK YIN [id number] [facility] 2019-06-01 09:28:00 2019-06-18 00:01:00 Outpatient CHUCK JIM [id number] [facility] Results Test Description Test Time Test Comments Results Result Co mments Source HGB [id number] 05:56:00* Test Item Value Reference Range Interpretation Comme nts HEMOGLOBIN (test code = HGB) 12.0 g/dL 10.1-13.8 N HEMATOCRIT (test code = HCT) 35.1 % 32.5-41.8 N Bacteria identified in Urine by [id number] 00:00:00* Test Item Value Reference Range Interpretation Comme nts Bacteria identified in Urine by Culture (test code = 630-4) see below no growth [facility] - [id number] 00:00:00* Test Item Value Reference Range Interpretation Comme nts Specific gravity of Urine (t est code = 2965-2) 1.013 1.003-1.030 pH of Urine (test code = 2756-5) 7.5 5.0-8.0 Protein [Presence] in Urine by Test strip (test code = 36292-2) negative negative Glucose [Presence] in Urine by Test strip (test code = 08597-6) negative negative Ketones [Presence] in Urine by Test strip (test code = 2514-8) negative negative Urobilinogen [Units/volume] in Urine by Test strip (test code = 51099-5) 0.2 mg/dL 0.2-1.0 Bilirubin.total [Presence] i n Urine by Test strip (test code = 5770-3) negative negative Hemoglobin [Presence] in Uri ne by Test strip (test code = 5794-3) negative negative Nitrite [Presence] in Urine by Test strip (test code = 5802-4) negative negative Crystals [Presence] in Urine by Automated (test code = 16236-5) none none Leukocytes [Presence] in Uri ne by Automated (test code = 80722-6) 0-5 0-5 Erythrocytes [Presence] in U rine by Automated (test code = 76504-1) 0-2 0-2 RBC casts [Presence] in Urin e by Computer assisted method (test code = 02774-6) not present not present Hyaline casts [Presence] in Urine by Automated (test code = 02231-0) not present not present Epithelial cells [#/area] in Urine sediment by Automated count (test code = 56516-4) none none-few Granular casts [Presence] in Urine by Computer assisted method (test code = 02901-7) not present not present Bacteria [#/area] in Urine sediment by Automated count (test code = 42443-6) many none-few A Leukocyte esterase [Presence ] in Urine by Test strip (test code = 5799-2) negative negative Color of Urine (test code = 5778-6) yellow yellow Character of Urine (test cod e = 30007-6) clear clear [facility]-SPINE W/O [id number] 19:13:00 [facility]IOName[facility] MIT[facility]CO : 1935 Sex: F[facility] [place], [place] [id number] IMAGING REPORTPatient Name: SAMMIE PACHECOate of Service: [id number]: 88 Sex: F Order #: [id number] Room: ERDOB: 1935 X-Ray Number: [id number] Record Number: [id number] Hospital Number: [id number] Physician: ,Ordering Physician: CHI ALEJANDRATORY:Neck traumaEXAM:CT C-SPINE W/O CONTCT Cervical spine.Technique:CT scan of the cervical spine was performed without intravenous contrast. CTscanning was performed from the sphenoid sinusthrough to T-3. This examination was performed using one or more of thefollowing dose reduction techniques: automaticexposure control,adjustment of the mA and or kVp according to thepatient's size or use of indurated iterative restric tiontechnique. Total DLP dose 273.4 mGy-cm. CTDI dose 11.1 mGyFindings:There is loss of the normal cervical lordosis. There is degenerative changesat the C1-C2 articulation with some ligamentouscalcifications. There is multilevel disc calcifications present. There isdisc space narrowing at C5-6 andC6-7. Thevertebral body heights and other intervertebral disc spaces are wellmaintained. Mild facetarthropathy and osteophyte formationis present. The prevertebral soft tissue structures are unremarkable.Vascular calcification's are seen. No suspicious abnormalitiesare seen.Impression:1. No fractures, but there are degenerative changes present. 1911 CTLegally authenticated by IRWIN MCCOY 2023-03-30 13:46:00CT HEAD W/O [id number] 19:09:00 [facility] : 1935 Sex: F[address] [address]AATFTIACDU IMAGING REPORTPatient Name: SAMMIE PACHECOate of Service: [id number]: 88 Sex: F Order #: [id number] Room: ERDOB: 1935 X-Ray Number: [id number] Record Number: [id number] Hospital Number: [id number] Physician: ,Ordering Physician: CHI ALEJANDRATORY:Head trauma, moderate-severeEXAM:CT HEAD W/O CONTHead CT scanTechnique:CT scan of the head was performed without intravenous contrast. CT scanningwas performed from the foramen magnum throughto the vertex. This examination was performed using one or more of thefollowing dose reduction techniques: automatic exposurecontrol, adjustment of the mA and or kVp according to the patient's size oruse of indurated iterative restriction technique.Total DLP dose 786 mGy-cm. 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 The brain parenchyma andventricular system are age appropriate with mild atrophy.There are low density changes seen in the white matter but without evidenceof mass, hemorrhage or midline shift. No densevessels are seen. The paranasal sinuses and orbits are unremarkable. Themastoid air cells and temporal regions are unremarkable.The region the sella turcica and midbrain are unremarkable. Vascularcalcifications are seen. The posterior fossa is unremarkable.No acute bony abnormalities are seen.Impression:1. 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 There are two right sided cranial valerie holes but no acute fractures 1906 CTThere was a typographical error in the radiation dose .Total DLP dose 1029.2 mGy-cm. CTDI dose 50.2 mGy.Electronically signed by Kalen Fields on 03/20 CTLegally authenticated by IRWIN MCCOY 2023-03-30 13:46:00Basic Metabolic [id number] 18:00:00* Test Item Value Reference Range Interpretation Comme nts SODIUM (test code = NA) 124 mmol/L 136-145 L Potassium,K (test code = K) 3.3 mmol/L 3.5-5.1 L Chloride (test code = CL) 89 mmol/L 98-107 L Carbon Dioxide (test code = CO2) 25 mmol/L 21-32 N Anion Gap (test code = GAP) 10 mmol/L 7-16 N Blood Urea Nitrogen (test co de = BUN) 16 mg/dL 7-18 N Creatinine (test code = CREATT) 0.8 mg/dL 0.6-1.0 N Estimated GFR ( Amer[place] ca (test code = EGFRAA) > 60 mL/min/1.73m2 Estimated GFR (Non Afr Ameri ca (test code = EGFRNAA) > 60 mL/min/1.73m2 BUN/Creatinine Ratio (test c ode = BCRATIO) 20 Glucose (test code = GLU) 126 mg/dL 74-106 H Calcium (test code = CA) 9.6 mg/dL 8.5-10.1 N [id number] 09:41:00* Test Item Value Reference Range Interpretation Comme nts BLOOD TYPE (test code = TYPE) B Rh Positive Comment for Females Rhogam may be indicated for patient depending baby's Rh status. ANTIBODY SCREEN (test code = SCREEN) NEGATIVE NEGATIVE PROTHROMBIN TIME WITH [id number] 09:22:00* Test Item Value Reference Range Interpretation Comme nts PROTHROMBIN TIME (test code = PT) 11.4 SECONDS 10.1-12.7 INR Usual Range = 2 to 3 for prevention of deep vein thrombosis (DVT) INR (test code = INR) 1.0 [id number] 09:22:00* Test Item Value Reference Range Interpretation Comme nts PTT (test code = PTT) 31.8 SECONDS 25.0-36.5 HEPARIN THERAPEU TIC RANGE 57-92 SECONDS COVID SYMPTOMATIC ER [id number] 09:15:00* Test Item Value Reference Range Interpretation Comme nts CORONAVIRUS (COVID-19)BY PCR (test code = [id number]) NEGATIVE [id number] 09:15:00* Test Item Value Reference Range Interpretation Comme nts GLUCOSE (test code = URGLU) NEGATIVE MG/DL NEG-100 BILIRUBN (test code = URBILI) NEGATIVE NEGATIVE KETONE (test code = URKET) NEGATIVE MG/DL NEGATIVE BLOOD (test code = URBLD) NEGATIVE UR PH (test code = URPH) 7.0 5.0-7.5 PROTEIN (test code = URPRO) NEGATIVE MG/DL NEGATIVE NITRITES (test code = URNIT) NEGATIVE NEGATIVE UROBILINGEN (test code = URURO) 1.0 EU/DL 0.2-1.0 LEUKOCYT (test code = URLEU) SMALL NEGATIVE UA COLOR (test code = UA COLOR) YELLOW YELLOW CLARITY (test code = CLARITY) CLEAR CLEAR SP GRAV (test code = URSPGRAV) 1.010 1.000-1.025 UAMICRO (test code = UAMICRO) YES WBC (test code = URWBC) 3 /HPF 0-5 RBC (test code = URRBC) 2 /HPF 0-2 CASTS (test code = CAST) 2 /LPF 0-3 UR EPI (test code = EPI) 45 /LPF BACTERIA (test code = BACTERIA) NEGATIVE NONE [id number] 09:14:00* Test Item Value Reference Range Interpretation Comme nts %CKMB (test code = %MB) 1.2 % CKMB (test code = CKMB) 0.7 NG/ML 0.22-2.4 CK (test code = CK) 58 U/L 30-135 CKINTERP (test code = CKINTERP) NEGATIVE Negative [id number] 08:58:00* Test Item Value Reference Range Interpretation Comme nts WBC (test code = WBC) 6.4 K/UL 3.5-10.9 RBC (test code = RBC) 4.30 M/UL 4.0-5.0 HGB (test code = HGB) 14.0 G/DL 11.5-15.5 HCT (test code = HCT) 40.3 % 34-46 MCV (test code = MCV) 93.7 FL 80-98 MCH (test code = MCH) 32.6 PG 28-32 H MCHC (test code = MCHC) 34.7 G/DL 32.5-36.5 RDW (test code = RDW) 13.0 % 11.5-14.5 PLT (test code = PLT) 178 K/UL 150-450 MPV (test code = MPV) 11.4 FL 7.4-10.4 H MANDIFF (test code = MANDIFF) NO SCAN (test code = SCAN) NO NEUT% (test code = NEUT%) 77.8 % 40-75 H LYMPH% (test code = LYMPH%) 10.0 % 24-44 L MONO% (test code = MONO%) 10.7 % 0-13 EOS% (test code = EOS%) 0.6 % 0-4 BASO % (test code = BASO%) 0.6 % 0-2 IG (test code = IG) 0 % 0-1 IG% (test code = IG%) 0.3 % 0-1 IG% = Metamyeloc ytes, Myelocytes, and Promyelocytes. (Immature neutrophils not including "bands".) > 3% IG indicates risk of sepsis NRBC% (test code = NRBC%) 0 /100 WBC ABS NEUT (test code = NEUT) 5.0 K/UL 1.2-7.2 CT HEAD W/O [id number] 08:54:00 [facility] : 1935 [facility] [place], [place] [address]HPLBRTQWDV IMAGING REPORTPatient Name: MITA PACHECO MDate of Service: 14-24-4288Yxb: 85 Sex: F Order #: [id number]: ERSDOB: 1935 X-Ray Number: [id number] Record Number: [id number] Hospital Number: [id number] Physician: Chucky AYALA Physician: MARIAN AYALA HEAD:HISTORY: Numbness of hand, stroke symptomsComparison: CT head 07/01/2015TECHNIQUE: Unenhanced CT axial images ofthe brain with sagittal andcoronal reformatted images.This CT exam was performed using one or more of the following dosereduction techniques: Automated exposure control, adjustment of the MAand/or KVaccording to patient size or use of iterative reconstructiontechnique.FINDINGS: There is a left-sided subdural hematoma. It measures up toapproximately 7 mm in thickness at the anterior left falx such as on image35. There is additional subdural hematoma overlying the left frontal andparietal lobes.The subdural hematoma measures approximately 6 mm on theleft on image 30. There may be very mild 3 mm left to right midline shift.There are scattered patchy foci of hypoattenuation in the periventricu larand subcortical white matter which are nonspecific but likely represent thesequela of chronic small vessel ischemic disease. There is a stable area ofhypodensity in the inferior left lentiform nucleus which may represent thesequela of a lacunar infarction or prominent perivascular space. There isno evidence of hydrocephalus. Carotid siphon calcifications. The visualizedparanasal sinuses are unremarkable. 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 No calvarial-based fracture. There is a right lensimplant.IMPRESSION:There is an acute left-sided subdural hematoma as detailed above. There maybe very mild left to right midline shift. Close attention on follow-up isrecommended.Dr. Ayala was aware of the findings at the time of dictation.Electronically Signed By: Paulino Gregg M.D., 07/25/2020 8:52 AMLegally authenticated by LLUVIA YEBOAH JR 2020-07-25 08:52:19CHEST 1 VIEW [id number] 08:34:00 [facility] MITA PAC[facility] : 1935 Sex: F[address] [address]ZZRSPCSTXW IMAGING REPORTPatient Name: MITA PACHECO MDate of Service: [id number]: 85 Sex: F Order #: [id number] Room: ERSDOB: 1935 X-Ray Number: [id number] Record Number: [id number] Hospital Number: [id number] Physician: NAOMI AYALAOrdermateo Physician: NAOMI AYALAExam: Chest APHistory: Numbness of handComparison: Chest x-ray 12/11/2013Findings: No focal consolidation, pleural effusion or pneumothorax. Thecardiac and superior mediastinal silhouettes are within normal limits.Thoracic aorta calcification.Impression:No acute cardiopulmonary process.Electronically Signed By: Paulino Gregg M.D., 07/25/2020 8:31 AMLegally authenticated by LLUVIA YEBOAH JR 2020-07-25 08: 31:55TROPONIN [id number] 08:30:00* Test Item Value Reference Range Interpretation Comme nts TROPER (test code = TROPER) 0.00 NG/ML 0.0-0.08 INTERPRETIVE DATA A POC TROPONIN OF </= 0.08 NG/ML IS CONSIDERED NEGATIVE ISTAT CHEM [id number] 08:20:00* Test Item Value Reference Range Interpretation Comme nts ISTATNA (test code = ISTATNA) 138 MMOL/L 137-145 ISTATK (test code = ISTATK) 4.0 MMOL/L 3.6-5.0 ISTATCL (test code = ISTATCL) 103 MMOL/L 98-107 ISTIONCA (test code = ISTIONCA) 1.31 MMOL/L 1.12-1.32 ISTCO2 (test code = ISTCO2) 26 MMOL/L 22-30 ISTATGLU (test code = ISTATGLU) 125 MG/DL 65-110 H ISTATBUN (test code = ISTATBUN) 19.0 MG/DL 7.0-20.0 ISTCREA (test code = ISTCREA) 1.0 MG/DL 0.7-1.5 ISTATHCT (test code = ISTATHCT) 42 %PCV 37.0-52.0 ISTATHGB (test code = ISTATHGB) 14.3 G/DL 12.0-18.0 Notified Nurse/M D of results outside of Reference Ranges ISTANGAP (test code = ISTANGAP) 14 MMOL/L Notified Nurse/M D of results outside of Reference Ranges WHOLE BLOOD [id number] 07:30:00* Test Item Value Reference Range Interpretation Comme [facility] WHOLE BLOOD GLUCOSE (test code = POC GLU) 116 MG/DL 70-99 H Fasting glucose normal <100 MG/DL- [place] [employer] recommendation BMP, BASIC METABOLIC [id number] 06:15:00* Test Item Value Reference Range Interpretation Comme nts SODIUM (test code = NA) 133 MMOL/L 137-145 L K+ (test code = KSERUM) 4.1 MMOL/L 3.5-5.1 CHLORIDE (test code = CL) 99 MMOL/L 98-107 CO2 (test code = CO2) 27 MMOL/L 22-30 BUN (test code = BUN) 20 MG/DL 7-17 H CREA (test code = CREA) 1.0 MG/DL 0.7-1.2 GLUCOSE (test code = GLUCOSE) 94 MG/DL 70-99 Fasting glucos e normal <100 MG/DL- [place] [employer] recommendation CALCIUM (test code = CABLOOD) 10.0 MG/DL 8.4-10.2 GFR (test code = GFR) 56 mL/min/1.73m2 A GFR of >90 mL/min/1.73m2 is considered normal. The GFR calculation on patients over 70 years of age is not validated by the [employer] and may not represent the patients true renal function. [id number] 06:15:00* Test Item Value Reference Range Interpretation Comme nts MG (test code = MG) 1.6 mg/dL 1.6-2.3 [id number] 04:38:00* Test Item Value Reference Range Interpretation Comme nts WBC (test code = WBC) 5.2 K/UL 3.5-10.9 RBC (test code = RBC) 4.52 M/UL 4.0-5.0 HGB (test code = HGB) 14.4 G/DL 11.5-15.5 HCT (test code = HCT) 41.3 % 34-46 MCV (test code = MCV) 91.4 FL 80-98 MCH (test code = MCH) 31.9 PG 28-32 MCHC (test code = MCHC) 34.9 G/DL 32.5-36.5 RDW (test code = RDW) 12.4 % 11.5-14.5 PLT (test code = PLT) 174 K/UL 150-450 MPV (test code = MPV) 11.5 FL 7.4-10.4 H MANDIFF (test code = MANDIFF) NO SCAN (test code = SCAN) NO NEUT% (test code = NEUT%) 62.1 % 40-75 LYMPH% (test code = LYMPH%) 21.2 % 24-44 L MONO% (test code = MONO%) 11.9 % 0-13 EOS% (test code = EOS%) 3.3 % 0-4 BASO % (test code = BASO%) 1.1 % 0-2 IG (test code = IG) 0 % 0-1 IG% (test code = IG%) 0.4 % 0-1 IG% = Metamyeloc ytes, Myelocytes, and Promyelocytes. (Immature neutrophils not including "bands".) > 3% IG indicates risk of sepsis NRBC% (test code = NRBC%) 0 /100 WBC ABS NEUT (test code = NEUT) 3.3 K/UL 1.2-7.2 BMP, BASIC METABOLIC [id number] 09:53:00* Test Item Value Reference Range Interpretation Comme nts SODIUM (test code = NA) 137 MMOL/L 137-145 K+ (test code = KSERUM) 3.9 MMOL/L 3.5-5.1 CHLORIDE (test code = CL) 101 MMOL/L 98-107 CO2 (test code = CO2) 31 MMOL/L 22-30 H BUN (test code = BUN) 18 MG/DL 7-17 H CREA (test code = CREA) 0.8 MG/DL 0.7-1.2 GLUCOSE (test code = GLUCOSE) 138 MG/DL 70-99 H Fasting glucos e normal <100 MG/DL- [place] [employer] recommendation CALCIUM (test code = CABLOOD) 10.2 MG/DL 8.4-10.2 GFR (test code = GFR) 73 mL/min/1.73m2 A GFR of >90 mL/min/1.73m2 is considered normal. The GFR calculation on patients over 70 years of age is not validated by the [employer] and may not represent the patients true renal function. [id number] 09:52:00* Test Item Value Reference Range Interpretation Comme nts WBC (test code = WBC) 5.1 K/UL 3.5-10.9 RBC (test code = RBC) 4.75 M/UL 4.0-5.0 HGB (test code = HGB) 15.3 G/DL 11.5-15.5 HCT (test code = HCT) 44.5 % 34-46 MCV (test code = MCV) 93.7 FL 80-98 MCH (test code = MCH) 32.2 PG 28-32 H MCHC (test code = MCHC) 34.4 G/DL 32.5-36.5 RDW (test code = RDW) 12.7 % 11.5-14.5 PLT (test code = PLT) 162 K/UL 150-450 MPV (test code = MPV) 11.2 FL 7.4-10.4 H MANDIFF (test code = MANDIFF) NO SCAN (test code = SCAN) NO NEUT% (test code = NEUT%) 72.4 % 40-75 LYMPH% (test code = LYMPH%) 14.3 % 24-44 L MONO% (test code = MONO%) 10.0 % 0-13 EOS% (test code = EOS%) 2.1 % 0-4 BASO % (test code = BASO%) 1.0 % 0-2 IG (test code = IG) 0 % 0-1 IG% (test code = IG%) 0.2 % 0-1 IG% = Metamyeloc ytes, Myelocytes, and Promyelocytes. (Immature neutrophils not including "bands".) > 3% IG indicates risk of sepsis NRBC% (test code = NRBC%) 0 /100 WBC ABS NEUT (test code = NEUT) 3.7 K/UL 1.2-7.2 MODIFIED [id number] 14:36:00 [facility] TARAM[facility] : 1935 Sex: F[address] [id number] IMAGING REPORTPatient Name: MITA PACHECO MDate of Service: 64-56-9352Uom: 85 Sex: F Order #: [id number]: 451/ A 4NDOB: 1935 X-Ray Number: [id number] Record Number: [id number] Hospital Number: [id number] Physician: KG WATTERS BOrdering Physician: KG WATTERS BExam: Modified barium swallowComparison: No comparison availableHISTORY: DysphasiaTECHNIQUE: Fluoroscopy time was 1minute and 23 secondsFindings: The patient was observed under fluoroscopy consuming Varibarthin, Varibar nectar and Varibar pudding. The examination is within normallimits. No evidence of aspiration.Please refer to the speech pathologist'sdictation for further details of the procedure.IMPRESSION:The examination is within normal limits.Electronically Signed By: Paulino Gregg M.D., 06/11/2020 2:06 PMLegally authenticated by LLUVIA YEBOAH JR 2020-06-11 14:06:30Specimen source [id number] 15:51:00* Test Item Value Reference Range Interpretation Comme nts SARS CoV-2 Rapid Source (belinda t code = 50075-5) Nasal swab [place] HealthS[facility]-CoV+SARS-CoV-2(COVID-19)Ag[Presence]2020-06-08 15:51:00* Test Item Value Reference Range Interpretation Comme nts SARS-CoV-2 Antigen (Rapid) ( test code = 15322-2) Negative Negative [place] [facility] HospitalIs patient employed in a healthcare [id number] 15:51:00* Test Item Value Reference Range Interpretation Comme nts N/A (test code = 06965-8) No [facility] HealthPatient has symptoms for condition of bzryslqe6149-40-22 15:51:00 * Test Item Value Reference Range Interpretation Comme nts N/A (test code = 34279-8) No [facility]Pt [facility] 15:51:00* Test Item Value Reference Range Interpretation Comme nts N/A (test code = 41147-0) No [facility] HealthPatient resides in congregate care neewgum3571-24-06 15:51:00* Test Item Value Reference Range Interpretation Comme nts N/A (test code = 31305-0) No [facility] HealthAutomated blood leukocyte count (number/volume)2020-06-08 05:08:00* Test Item Value Reference Range Interpretation Comme nts White Blood Count (test code = 6690-2) 5.3 4.5-11.5 [facility] HealthBlood erythrocytes automated count (number/volume)2020-06-08 05:08:00* Test Item Value Reference Range Interpretation Comme [facility] Red Blood Count (test code = 789-8) 4.45 3.8-5.1 [facility] HealthBlood hemoglobin measurement (mass/volume)2020-06-08 05:08:00* Test Item Value Reference Range Interpretation Comme [facility] Hemoglobin (test code = 718-7) 14.1 12.0-15.2 [facility] HealthAutomated blood hematocrit (volume fraction)2020-06-08 05:08:00* Test Item Value Reference Range Interpretation Comme [facility] Hematocrit (test code = 4544-3) 41.0 34.0-45.5 [facility] HealthAutomated erythrocyte mean corpuscular volume (MCV) measurement 2020-06-08 05:08:00* Test Item Value Reference Range Interpretation Comme [facility] Mean Corpuscular Volume (belinda t code = 787-2) 92 80-94 [facility] HealthAutomated erythrocyte mean corpuscular hemoglobin (mass per erythrocyte)2020-06-08 05:08:00* Test Item Value Reference Range Interpretation Comme [facility] Mean Corpuscular Hemoglobin (test code = 785-6) 31.7 27.0-33.0 [facility] HealthAutomated erythrocyte mean corpuscular hemoglobin concentration measurement (mass/volume)2020-06-08 05:08:00* Test Item Value Reference Range Interpretation Comme [facility] Mean Corpuscular Hemoglobin Concent (test code = 786-4) 34.4 33.0-37.0 [facility] HealthAutomated erythrocyte distribution width luxxk2573-66-52 05:08:00 * Test Item Value Reference Range Interpretation Comme [facility] Red Cell Distribution Width (test code = 788-0) 12.9 10.7-14.5 [facility] HealthAutomated blood platelet count (count/volume)2020-06-08 05:08:00 * Test Item Value Reference Range Interpretation Comme [facility] Platelet Count (test code = 777-3) 141 150-450 [facility] HealthAutomated blood platelet mean volume ydyjwrixbmx6961-07-67 05:08:00* Test Item Value Reference Range Interpretation Comme nts Mean Platelet Volume (test c ode = 52165-0) 11.1 5.7-10.7 [facility] HealthAutomated blood neutrophil count as percentage of total idljutzozm8195-90-18 05:08:00* Test Item Value Reference Range Interpretation Comme nts Neutrophils (%) (Auto) (test code = 770-8) 64 47-75 [facility] HealthAutomated blood immature granulocyte count as percentage of total agvmzjzkfo6403-01-75 05:08:00* Test Item Value Reference Range Interpretation Comme nts Immature Granulocyte % (Auto ) (test code = 03507-1) 0 0-0 [facility] HealthAutomated blood lymphocyte count as percentage of total fkmjvgxfuq6955-85-29 05:08:00* Test Item Value Reference Range Interpretation Comme nts Lymphocytes (%) (Auto) (test code = 736-9) 21 25-44 [facility] HealthAutomated blood monocyte count as percentage of total leukocytes 2020-06-08 05:08:00* Test Item Value Reference Range Interpretation Comme nts Monocytes (%) (Auto) (test c ode = 5905-5) 12 3-10 [facility] HealthAutomated blood eosinophil count as percentage of total ttkcpbmcqj0288-39-43 05:08:00* Test Item Value Reference Range Interpretation Comme nts Eosinophils (%) (Auto) (test code = 713-8) 2 0-7 [facility] HealthAutomated blood basophil count as percentage of total leukocytes 2020-06-08 05:08:00* Test Item Value Reference Range Interpretation Comme nts Basophils (%) (Auto) (test c ode = 706-2) 1 0-1 [facility] HealthAutomated blood nucleated erythrocyte count as percentage of total fxucffszsr6532-21-96 05:08:00* Test Item Value Reference Range Interpretation Comme nts Nucleated Red Blood Cells % (test code = 01006-5) 0.0 0-0.2 [facility] HealthAutomated blood neutrophil count (number/volume)2020-06-08 05:08:00* Test Item Value Reference Range Interpretation Comme nts Neutrophils # (Auto) (test c ode = 751-8) 3.3 1.3-6.7 [facility] HealthAutomated blood lymphocyte count (number/volume)2020-06-08 05:08:00* Test Item Value Reference Range Interpretation Comme nts Lymphocytes # (Auto) (test c ode = 731-0) 1.1 1.4-4.1 [facility] HealthBlood monocytes automated count (number/volume)2020-06-08 05:08:00* Test Item Value Reference Range Interpretation Comme nts Monocytes # (Auto) (test code = 742-7) 0.6 0-1.3 [facility] HealthAutomated blood eosinophil bpujw0800-82-77 05:08:00* Test Item Value Reference Range Interpretation Comme nts Eosinophils # (Auto) (test c ode = 711-2) 0.1 0-0.8 [facility] HealthAutomated blood basophil count (number/volume)2020-06-08 05:08:00 * Test Item Value Reference Range Interpretation Comme nts Basophils # (Auto) (test code = 704-7) 0.1 0-0.1 [facility] HealthAutomated blood nucleated erythrocyte count (count/volume) 2020-06-08 05:08:00* Test Item Value Reference Range Interpretation Comme nts Nucleated Red Blood Cells # (test code = 771-6) 0.00 0-0.01 [facility] HealthService comment [id number] 05:08:00* Test Item Value Reference Range Interpretation Comme nts Manual Differential (test co de = 8265-1) Not Ind [facility] HealthSerum or plasma sodium measurement (moles/volume)2020-06-08 05:08:00* Test Item Value Reference Range Interpretation Comme nts Sodium Level (test code = 2951-2) 137 136-145 [facility] HealthSerum or plasma potassium measurement (moles/volume)2020-06-08 05:08:00* Test Item Value Reference Range Interpretation Comme nts Potassium Level (test code = 2823-3) 3.5 3.5-5.1 [facility] HealthSerum or plasma chloride measurement (moles/volume)2020-06-08 05:08:00* Test Item Value Reference Range Interpretation Comme nts Chloride Level (test code = 2075-0) 107 98-107 [facility] HealthSerum or plasma total carbon dioxide measurement (moles/volume) 2020-06-08 05:08:00* Test Item Value Reference Range Interpretation Comme nts Carbon Dioxide Level (test c ode = 2027-9) 24 23-31 [facility] HealthSerum or plasma anion gap determination (moles/volume)2020-06-08 05:08:00* Test Item Value Reference Range Interpretation Comme nts Anion Gap (test code = 27874-4) 10 8-18 [facility] HealthSerum or plasma urea nitrogen measurement (mass/volume)2020-06-08 05:08:00* Test Item Value Reference Range Interpretation Comme nts Blood Urea Nitrogen (test co de = 3094-0) 18 10-20 [facility] HealthSerum or plasma creatinine measurement (mass/volume)2020-06-08 05:08:00* Test Item Value Reference Range Interpretation Comme nts Creatinine (test code = 2160-0) 0.8 0.6-1.1 [facility] HealthGFR estimate [id number] 05:08:00* Test Item Value Reference Range Interpretation Comme nts Estimat Glomerular Filtratio n Rate (test code = 756200899) 73 50-100 [facility] HealthSerum or plasma glucose measurement (mass/volume)2020-06-08 05:08:00* Test Item Value Reference Range Interpretation Comme nts Glucose Level (test code = 2345-7) 94 60-100 [facility] HealthSerum or plasma calcium measurement (mass/volume)2020-06-08 05:08:00* Test Item Value Reference Range Interpretation Comme nts Calcium Level (test code = 20629-6) 10.0 8.4-10.2 [facility] HealthSerum or plasma magnesium measurement (mass/volume)2020-06-08 05:08:00* Test Item Value Reference Range Interpretation Comme nts Magnesium Level (test code = 21685-2) 1.61 1.60-2.60 [facility] HealthSerum or plasma total bilirubin measurement (mass/volume) 2020-06-02 05:00:00* Test Item Value Reference Range Interpretation Comme nts Total Bilirubin (test code = 1975-2) 1.9 0.2-1.2 [facility]um or plasma aspartate aminotransferase measurement (enzymatic activity/volume)2020-06-02 05:00:00* Test Item Value Reference Range Interpretation Comme nts Aspartate Amino Transf (AST/ SGOT) (test code = 1920-8) 20 5-34 [facility] HealthSerum or plasma alanine aminotransferase measurement (enzymatic activity/volume)2020-06-02 05:00:00* Test Item Value Reference Range Interpretation Comme nts Alanine Aminotransferase (AL T/SGPT) (test code = 1742-6) 20 0-55 [facility]Serum or plasma protein measurement (mass/volume)2020-06-02 05:00:00* Test Item Value Reference Range Interpretation Comme nts Total Protein (test code = 2885-2) 6.5 5.8-7.6 [facility]Serum or plasma albumin measurement (mass/volume)2020-06-02 05:00:00* Test Item Value Reference Range Interpretation Comme nts Albumin (test code = 1751-7) 4.1 3.2-4.7 [facility]um or plasma alkaline phosphatase measurement (enzymatic activity/volume)2020-06-02 05:00:00* Test Item Value Reference Range Interpretation Comme nts Alkaline Phosphatase (test c ode = 6768-6) 70 40-150 [facility] HealthUrinalysis specimen collection [id number] 01:13:00* Test Item Value Reference Range Interpretation Comme nts Urine Source (test code = 51011-7) URINE [facility] HealthColor of Urine by [id number] 01:13:00* Test Item Value Reference Range Interpretation Comme nts Urine Color (test code = 92389-2) Lt Yellow Yel-Ada * [facility] HealthUrine clarity nilbxojmshzep3137-82-42 01:13:00* Test Item Value Reference Range Interpretation Comme nts Urine Appearance (test code = 65386-0) Clear Clear * [facility] HealthUrine pH measurement by automated test [id number] 01:13:00* Test Item Value Reference Range Interpretation Comme nts Urine pH (test code = 57220-4) 6.0 5.0-8.0 [facility] HealthSpecific gravity of Urine by Automated test [id number] 01:13:00* Test Item Value Reference Range Interpretation Comme nts Urine Specific [place] (test code = 79006-9) 1.012 1.005-1.030 [facility] HealthUrine protein measurement by automated test strip (mass/volume) 2020-06-02 01:13:00* Test Item Value Reference Range Interpretation Comme nts Urine Protein (test code = 88893-0) Negative Negative * [facility] HealthUrine glucose measurement by automated test strip (mass/volume) 2020-06-02 01:13:00* Test Item Value Reference Range Interpretation Comme nts Urine Glucose (UA) (test cod e = 32061-6) Negative Negative * [facility] HealthKetones [Mass/volume] in Urine by Automated test [id number] 01:13:00* Test Item Value Reference Range Interpretation Comme nts Urine Ketones (test code = 74901-9) Negative Negative * [facility] HealthUrine erythrocytes count by automated test strip (number/volume) 2020-06-02 01:13:00* Test Item Value Reference Range Interpretation Comme nts Urine Occult Blood (test cod e = 20497-3) Negative Negative * [facility] HealthUrine nitrite detection by automated test [id number] 01:13:00* Test Item Value Reference Range Interpretation Comme nts Urine Nitrite (test code = 89844-7) Negative Negative [facility] HealthUrine total bilirubin measurement by automated test strip (mass/volume)2020-06-02 01:13:00* Test Item Value Reference Range Interpretation Comme nts Urine Bilirubin (test code = 11727-6) Negative Negative [facility] HealthUrine urobilinogen measurement by automated test strip (mass/volume)2020-06-02 01:13:00* Test Item Value Reference Range Interpretation Comme nts Urine Urobilinogen (test cod e = 23847-4) Negative 0.0-1.0 [facility] HealthUrine leukocytes count by automated test strip (number/volume) 2020-06-02 01:13:00* Test Item Value Reference Range Interpretation Comme nts Urine Leukocyte Esterase (te st code = 17424-5) 75 Negative [facility] HealthMicroscopic examination of jodll2478-99-93 01:13:00* Test Item Value Reference Range Interpretation Comme nts Microscopic Urinalysis (T) ( test code = 51444-0) ----- [facility] HealthUrine sediment erythrocyte count by microscopy (number/high power field)2020-06-02 01:13:00* Test Item Value Reference Range Interpretation Comme nts Urine RBC (test code = 97554-3) 0-2 0-2 [facility] HealthUrine sediment leukocyte count by microscopy (number/high power field)2020-06-02 01:13:00* Test Item Value Reference Range Interpretation Comme nts Urine WBC (test code = 5821-4) 0-5 0-5 [facility] HealthUrine sediment epithelial cell count by microscopy (number/high power field)2020-06-02 01:13:00* Test Item Value Reference Range Interpretation Comme nts Urine Epithelial Cells (test code = 5787-7) None Seen Few [facility] HealthUrine sediment crystal count by microscopy (number/high power field)2020-06-02 01:13:00* Test Item Value Reference Range Interpretation Comme nts Urine Crystals (test code = 65202-1) None Seen None * [facility] HealthUrine sediment bacteria count by microscopy (number/high power field)2020-06-02 01:13:00* Test Item Value Reference Range Interpretation Comme nts Urine Bacteria (test code = 5769-5) Few None [facility] HealthUrine sediment casts count by microscopy (number/low power field) 2020-06-02 01:13:00* Test Item Value Reference Range Interpretation Comme nts Urine Casts (test code = 9842-6) Present None * [facility] HealthUrine sediment hyaline cast count by microscopy (number/low power field)2020-06-02 01:13:00* Test Item Value Reference Range Interpretation Comme nts Urine Hyaline Casts (test co de = 5796-8) 0-1 0-1 [facility] HealthYeast detection in urine sediment by light ynywoshczd4900-40-70 01:13:00* Test Item Value Reference Range Interpretation Comme nts Urine Yeast (test code = 99488-6) None Seen None [facility] comment 01:13:00* Test Item Value Reference Range Interpretation Comme nts Urinalysis Comment (test code = 8262-8) * See_Comment [Automated giddya ge] The system which generated this result transmitted reference range: *. The reference range was not used to interpret this result as normal/abnormal. [facility] HealthSerum or plasma cholesterol measurement (mass/volume)2020-06-01 04:00:00* Test Item Value Reference Range Interpretation Comme nts Cholesterol Level (test code = 2093-3) 162 < 200 [facility] HealthSerum or plasma triglyceride measurement (mass/volume)2020-06-01 04:00:00* Test Item Value Reference Range Interpretation Comme [facility] Triglycerides Level (test co de = 2571-8) 123 < 150 [facility] HealthHDLc OzuCl-nIan7444-05-12 04:00:00* Test Item Value Reference Range Interpretation Comme nts HDL Cholesterol (test code = 2085-9) 48 40-60 [facility] Sjdp-xGlh2985-57-12 04:00:00* Test Item Value Reference Range Interpretation Comme nts LDL Cholesterol (test code = 07799-6) 89 0-99 [facility] HealthCholest/HDLc IvvWg8894-28-16 04:00:00* Test Item Value Reference Range Interpretation Comme nts Cholesterol/HDL Ratio (test code = 9830-1) 3.4 See Note [facility] HealthLDLc/HDLc HkbKx7269-79-84 04:00:00* Test Item Value Reference Range Interpretation Comme [facility] Cholesterol Ratio (LDL/HDL) (test code = 90278-8) 1.9 [facility]it[facility] B12 ser/rrws6393-62-08 04:00:00* Test Item Value Reference Range Interpretation Comme [facility] Vitamin B12 Level (test code = 2132-9) 1185 213-816 [facility]Hgb A1c MFr Qzt3947-45-87 04:00:00* Test Item Value Reference Range Interpretation Comme [facility] Hemoglobin A1c (test code = 4548-4) 5.4 <5.7 [facility] HealthSerum or plasma thyrotropin measurement with detection limit of 0.005 mIU/L or less (units/volume)2020-06-01 04:00:00* Test Item Value Reference Range Interpretation Comme nts Thyroid Stimulating Hormone (TSH) (test code = 94608-9) 1.82 0.35-4.94 [facility] HospitalImmature platelet [id number] 23:25:00* Test Item Value Reference Range Interpretation Comme [facility] Immature Platelet Fraction ( test code = 57511-1) 5.1 0.9-11.2 [facility] HospitalProthrombin time (PT) in platelet poor bxjuyo6035-60-38 23:25:00 * Test Item Value Reference Range Interpretation Comme [facility] Prothrombin Time (test code = 5902-2) 10.1 9.4-12.0 [facility] HealthINR in Platelet poor plasma by Coagulation [id number] 23:25:00* Test Item Value Reference Range Interpretation Comme nts Prothromb Time International Ratio (test code = 6301-6) 1.0 0.8-1.2 [facility] HealthPlasma partial thromboplastin time (PTT)2020-05-30 23:25:00* Test Item Value Reference Range Interpretation Comme nts Activated Partial Thrombopla st Time (test code = 42195-7) 23.8 21.0-33.0 [facility] HealthSerum or plasma cardiac troponin I measurement (mass/volume) 2020-05-30 23:25:00* Test Item Value Reference Range Interpretation Comme nts Troponin I (test code = 02918-3) 0.01 0.00-0.03 [facility] HealthMRI LUMBAR W/O [id number] 08:09:[address] [id number] IMAGING REPORTPa tient Name: MITA PACHECO MDate of Service: 05-00-2353Kka: 84 Sex: F Order #: [id number] Room: OPODOB:1935 X-Ray Number: [id number] Record Number: [id number] Hospital Number: [id number] Physician: Anders MARMOLEJO Physician: PADMINI MARMOLEJO LUMBAR SPINE WITHOUT CONTRAST 02/09/2019HISTORY: Low back pain radiating down the left lower extremity.COMPARISON: Same day x-rays and prior CT abdomen/pelvis of 03/02/2016.FINDINGS: There are 5 lumbar levels. Vertebral body heights aremaintainedwithout fracture, spondylolysis or spondylolisthesis.Conus medullaris tip is posterior yoA64-Y3 and the distal spinal cord isnormal. There are small osteophytes throughout the spine as well. Mild discspace height narrowing is seen at essentially all lumbar levels.Minimal disc bulges at T11-12 and T12-L1 do not produce spinal stenosis.Neural foramina are patent.Posterior disc herniationat L1-2 projects up to 4 mm posterior to thevertebral bodies. Central spinal canal distance is narrowed to 10 mm.Spinal stenosis is accentuated by posterior epidural fat. Mild ligamentumflavum and fac et hypertrophic changes are evident. Neural foramina arepatent.Broad-based posterior disc herniation at L2-3 extends up to 5 mm posteriorto the vertebral bodies. Central spinal canal distance is 12 mm. Ligamentumflavum and facet hypertrophic changes are evident. There is only minimalbilateral foraminal narrowing.Broad-based disc bulge at L3-4 is most pronounced in the foraminal regionsextending up 6 mm posterior to the vertebral bodies. Central spinal canaldistance is narrowed to 9-10 mm. This is accentuated by ligamentum flavumand facet hypertrophic changes. Mild bilateral foraminal narrowing isidentified with possible contact upon exiting nerve roots by bulging discin the foraminal regions.Broad-based posterior disc herniation at L4-5 is most pronounced in theleft foraminal region extending up to 8 mm posterior to the vertebralbodies. Central spinal canal distance is narrowed to 7-8 mm. This isaccentuated by ligamentum flavum and facet hypertrophy. Minimal right andmoderate to marked left foraminal narrowing is seen with possibleimpingement upon the exiting left nerve root.Posterior disc herniation at L5-S1 is most pronounced centrally extendingup 7 mm posterior to the vertebralbodies. Central spinal canal distance isnarrowed to 9 mm. This is accentuated by ligament flavum and facethypertrophic change. Disc herniation may contact descending S1 nerve roots.Neural foramina are patent.Incidental note is made of a suspected cyst at the upper left kidneymedially. This is only partially visualized and measured up to 1.3 cm indiameter.IMPRESSION:Multilevel bony and discogenic degenerative changes throughout thevisualized thoracolumbar spine as discussed. Please see the aboveextensivedescription.THANK YOU FOR YOUR OUTPATIENT REFERRALjhbElectronically Signed By: Xavier Jeffrey M.D., 02/10/2019 8:07 AMLegally authenticated by BETTY BRITT 2019-02-10 08:07:35Z-ORG SCREEN MAMMO W/CAD +BRYANNA 2017-12-23 13:32:[address] [id number] IMAGING REPORTPatient Name: MITA PACHECO MDate of Service: 30-11-0073Ktj: 82 Sex: F Order #: 100 Room: OPODOB:1935 X-Ray Number: [id number] Record Number: [id number] Hospital Number: [id number] Physician: Anders MARMOLEJO Physician: CHRISTINE MARMOLEJO DIGITAL MAMMOGRAM SCREENING WITH DIGITAL TOMOSYNTHESISCOMPARISON: 11/12/2016HISTORY: Mammogram Screening.REGULATOR OPERATOR: Burton Fonseca ) Marychuy) ARCHIE.FINDINGS:Digital tomosynthesis was performed and utilized for the interpretation ofthe current examination.The breasts are scattered fatty and fibroglandular density.There is no mammographic evidence for dominant mass, architecturaldistortion, spiculation or suspicious cluster of microcalcifications.IMPRESSION:BI-RADS CATEGORY - 2, benign findings.FOLLOW UP: 12 month follow-up mammogram is recommended.PLEASE NOTE:1. In up to 10% of patient's, cancers are not visible on mammography.2. If a suspicious lump is palpated, biopsy should not be deferred becauseof a negative mammogram.M AMMOGRAPHY AT [facility] IS ACCREDITED BY THEFLAGSTAFF MEDICAL CENTERAN COLLEGE OF RADIOLOGYdfWE APPRECIATE YOUR OUTPATIENT REFERRAL.Electronically Signed By: Kyle Miranda M.D., 12/23/2017 1:30 PMLegally authenticated by ADIS OCONNOR 2017-12-23 13:30:25Z-ORG SCREEN MAMMO W/CAD +[id number] 14:48:[address] [id number] IMAGING REPORTPatient Name: MITA PACHECO MDate of Service: 25-03-9336Ldj: 81 Sex: F Order #: 100 Room: OPODOB:1935 X-Ray Number: [id number] Record Number: [id number] Hospital Number: [id number] Physician: Anders MARMOLEJO Physician: CHRISTINE MARMOLEJO DIGITAL MAMMOGRAM WITH TOMOSYNTHESIS:CLINICAL HISTORY: Routine annual screening study; no family history ofbreast cancerTECHNIQUE: The craniocaudal and mediolateral views were obtained andtomosynthesis was utilizedFINDINGS: The breast parenchymal pattern consists of heterogeneously densebreast tissue. This may obscure small masses.There are numerous benign calcifications seen in each breast.There is no evidence of a dominant mass or suspicious clusters ofmicrocalcification in either breast.There is no evidence of axillary ad enopathy.IMPRESSION:Stable examination with no evidence of malignancy and no significant changesince 2015.BI-RADS CATEGORY 2: Benign findings.SOCIAL SERVICE MANAGER: JUDAH Rodriguez (M)PLEASE NOTE:1. In up to 10% of patients, cancers are not visible on mammography.2. If a suspicious lump is palpated, bio psy should not be deferredbecause of a negative mammogram.MAMMOGRAPHY AT [facility] IS ACCREDITED BY THE [place] COLLEGE OFRADIOLOGYTHANK YOU FOR YOUR OUTPATIENT REFERRALjhbElectronically Signed By: Kg Morales M.D., 11/13/2016 2:43 PMLegally authenticated by ERIN Esquivel 2016-11-13 14:43:47 Notes Date/Time Note Provider Source 2024-02-03 06:45:00 [id number] [facility] [place] [address] PATIENT NAME: MITA PACHECO ADMIT DATE: 02/02/24 ACCOUNT NO: [id number] ROOM NO: [facility] AGE: 89 SEX: F ADMITTING PHYSICIAN: Mary Kay Cam MD ATTENDING PHYSICIAN: Mary Kay Cam MD ADMISSION DATE: 02/02/2024 06:38:00 DISCHARGE DATE: ADMITTING DIAGNOSES: Posthysterectomy prolapse and stress incontinence. DISCHARGE DIAGNOSES: Posthysterectomy prolapse and stress incontinence. PROCEDURES DURING HOSPITALIZATION: Vaginal colpectomy, Bulkamid transurethral bulking, cystoscopy, posterior colporrhaphy. REASON FOR HOSPITALIZATION AND CLINICAL SUMMARY: Ms. Pacheco is an 89-year-old female who presented with stage III posthysterectomy prolapse. Urodynamic testing also confirmed stress incontinence. She elected to undergo obliterative surgical intervention. On 02/02/2024, she was taken to the operating room where her surgery was performed without complications. On postoperative day #1, she has a hemoglobin of 12. She is tolerating a regular diet. She is passing flatus. She reports adequate pain control. She is due to void. She is stable and ready for discharge home. DISCHARGE MEDICATIONS: 1. Tramadol 50 mg one p.o. q.6 hours p.r.n. pain. 2. Colace 200 mg nightly. 3. Nitrofurantoin 100 mg nightly if discharged home with catheter. 4. She will resume home medications. DISCHARGE ACTIVITY: Pelvic rest, light activity, no heavy lifting. Follow up is in 2 weeks for a postoperative check. Dictated By: Mary Kay Cam MD Date Dictated: 02/03/2024 06:45:42 Date Transcribed: 02/03/2024 07:04:30 /NAF Receipt ID: [id number] Authenticated by Mary Kay Cam MD On 02/03/2024 07:16:48 AM PATIENT NAME: MITA PACHECO at 0716 PATIENT NAME: MITA PACHECO [facility] 2024-02-02 11:52:00 [id number] [place] [address] PATIENT NAME: MITA PACHECO ADMIT DATE: 02/02/24 ACCOUNT NO: [id number] ROOM NO: 2622 AGE: 89 SEX: F ADMITTING PHYSICIAN: Mary Kay Cam MD ATTENDING PHYSICIAN: Mary Kay Cam MD OPERATION DATE: 02/02/2024 PREOPERATIVE DIAGNOSES: 1. Vaginal vault prolapse. 2. Enterocele. 3. Rectocele. 4. Stress urinary incontinence. POSTOPERATIVE DIAGNOSES: 1. Vaginal vault prolapse. 2. Enterocele. 3. Rectocele. 4. Stress urinary incontinence. PROCEDURES: 1. Total vaginal colpectomy. 2. Posterior colporrhaphy with perineorrhaphy. 3. Cystoscopy. 4. Bulkamid transurethral bulking. SURGEON: Mary Kay Cam M.D. LASTING MACHINE OPERATOR BED: Calos Sims MD ANESTHESIA: LMA and local. ESTIMATED BLOOD LOSS: 25 mL. INDICATIONS: Ms. Pacheco is an 89-year-old female who presented with symptomatic stage III posthysterectomy prolapse. Complex urodynamic testing with reduction of prolapse also confirmed urodynamic stress incontinence. After extensive counseling, she elected to undergo obliterative surgical intervention. FINDINGS: Stage III prolapse. Cystourethroscopy revealed ureteral orifices in the normal anatomical location with bilateral ureteral efflux. No evidence of bladder lesions or injury. PROCEDURE IN DETAIL: The patient was taken to the operating room where she was prepped and draped in the usual sterile fashion in a dorsal lithotomy position. A Coffey catheter was placed through the urethral meatus. The anterior vaginal epithelium was injected with 1% Pitressin solution. The vaginal epithelium was sharply dissected from the underlying pubocervical tissue, from the bladder neck to the most distal portion of the anterior prolapse. Similar dissection was PATIENT NAME: MITA PACHECO then carried out posteriorly. The posterior epithelium was injected with a 1:10 Pitressin solution. The vaginal epithelium was sharply dissected from the underlying rectovaginal tissue. The pubocervical and rectovaginal tissue were then serially imbricated using 2-0 Ethibond suture resulting in involution of the prolapse. The edges of the vaginal epithelium were closed with [id number]-[id number] sutures using 0 Vicryl. An elliptical incision was made at the introitus. Previous scarring was excised. The remaining posterior vaginal epithelium was opened in the midline. The vaginal epithelium was sharply dissected from the underlying rectovaginal tissue. The rectovaginal tissue was serially plicated with 2-0 PDS suture. The perineal body was reapproximated with 2-0 PDS suture. Good hemostasis was noted. The vaginal epithelium was lightly trimmed. The vaginal epithelium was closed in a continuous fashion with 2-0 Vicryl suture. Again, good hemostasis was noted. Coffey catheter was removed. Cystourethroscopy was then performed with the above noted findings. The Bulkamid injection cystoscope was introduced through the urethral meatus. The needle was advanced to the 2 cm josafat. This aided in proper placement of the injection to be 1.5 to 2 cm from the bladder neck. Half a syringe of Bulkamid was then injected at the 2 o'clock position, 5 o'clock position, 7 o'clock position and 10 o'clock position resulting in coaptation of the urethra. The Bulkamid injection cystoscope was removed. A 10-[place] Coffey catheter was placed. The patient tolerated the procedure well. Sponge, lap and needle counts were correct x2. She was taken to recovery room in stable condition. Dictated By: Mary Kay Cam MD Date Dictated: 02/02/2024 11:52:00 Date Transcribed: 02/02/2024 12:19:47 GC/JOSUE/ANSHU Receipt ID: [id number] Authenticated and Edited by Mary Kay Cam MD On 02/03/24 7:16:39 AM at 0719 PATIENT NAME: MITA PACHECO [facility] 2024-01-25 10:17:21 NENA Lara - 01/25/2024 9:30 AM CDT CHIEF COMPLAINT: HYPERKERATOSIS, RIGHT SUB 5TH METATARSAL HEAD [facility] HISTORY OF PRESENT ILLNESS: Patient states he recently moved from [place], [place], and has not yet been established with a sheet metal worker helper, approximately July 2023 Patient requesting evaluation of the lower extremity to help reduce chances of complications in the lower extremity due to multiple high risk comorbidities Patient states nails are painful, thick, and elongated. Patient states unable to care for her lower extremity due to stroke OBJECTIVE: PHYSICAL EXAM OF THE LOWER EXTREMITY VASCULAR: (+) 1/4 pitting edema symmetrical to bilateral lower extremity (-) ecchymosis (-) erythema 1/4 Dorsal pedis pulse, bilateral 1/4 Posterior tibial pulse, bilateral (+) normal Capillary Refill time (+) varicosities, (-) pedal hair growth NEUROLOGICAL: (+) sensation with 5.07 [place] Mariela monofilament examination to the most distal lower extremity (-) tinel's sign (-) clonus present (+) normal response to hot, cold, sharp, blunted and vibratory sensations DERMATOLOGICAL: (+) Nails are thick, yellow, elongated. Debrided without complications (-) open wounds (-) signs of infection (-) ischemic tissue (-) macerations (-) abscess (+) normal temperature when compared to contralateral limb (+) normal color, tugor, and elasticity MUSCULOSKELETAL: (-) pain on palpation, BILATERAL lower extremity (+) Semi-rigid hammertoe deformities, BILATERAL (-) other gross osseous abnormalities 4/5 muscle strength, left lower extremity 5/5 muscle strength, right lower extremity (-) evidence of compartment syndrome (-) evidence of deep vein thrombosis ASSESSMENT: Paronychia, nails 1-10 Onychomycosis, bilateral feet --- History of stroke, 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 - Edema - compression stockings advised - Shoes - patient educated to obtain appropriate shoes with custom inserts - Return 12 weeks for routine pedal care Patient advised to report to my clinic or the emergency room immediately with any questions or concerns. Patient Instructions: Discussion: A detailed discussion was provided to the patient with specific reference to etiology, pathology, alternate treatment options, and prognosis. All risks and complications (including side effects) with each treatment/medication alternative were outlined in detail including but not limited to: Pain, swelling, numbness,loss of function, loss of limb, bleeding, hematoma, scarring, failure to relieve condition, surgery, additional/revisional surgery, reflex sympathetic dystrophy, complex regional pain syndrome, reoccurrence of deformity, joint stiffness, flail toe, bone and/or soft tissue infection, blood clots, pulmonary embolism, possible ,delayed or non-healing. X-rays, graphs and drawings were all used to assist with patient comprehension when appropriate. All patients questions were answered and stated they fully understood. No guarantee as to results or outcome of treatment was made. I have discussed with the patient or legally responsible person prior to obtaining consent: the risks, potential benefits and drawbacks, significant alternatives, potential for problems related to recuperation, likelihood of success, and possible results of non-treatment, and the patient or the legally responsible person has agreed to proceed. 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 Patient states unable to care for her lower extremity due to stroke OBJECTIVE: PHYSICAL EXAM OF THE LOWER EXTREMITY VASCULAR: (+) 1/4 pitting edema symmetrical to bilateral lower extremity (-) ecchymosis (-) erythema 1/4 Dorsal pedis pulse, bilateral 1/4 Posterior tibial pulse, bilateral (+) normal Capillary Refill time (+) varicosities, (-) pedal hair growth NEUROLOGICAL: (+) sensation with 5.07 [place] Mariela monofilament examination to the most distal lower extremity (-) tinel's sign (-) clonus present (+) normal response to hot, cold, sharp, blunted and vibratory sensations DERMATOLOGICAL: (+) Nails are thick, yellow, elongated. Debrided without complications (-) open wounds (-) signs of infection (-) ischemic tissue (-) macerations (-) abscess (+) normal temperature when compared to contralateral limb (+) normal color, tugor, and elasticity MUSCULOSKELETAL: (-) pain on palpation, BILATERAL lower extremity (+) Semi-rigid hammertoe deformities, BILATERAL (-) other gross osseous abnormalities 4/5 muscle strength, left lower extremity 5/5 muscle strength, right lower extremity (-) evidence of compartment syndrome (-) evidence of deep vein thrombosis ASSESSMENT: Paronychia, nails 1-10 Onychomycosis, bilateral feet --- History of stroke, 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 - Edema - compression stockings advised - Shoes - patient educated to obtain appropriate shoes with custom inserts - Return 12 weeks for routine pedal care Patient advised to report to my clinic or the emergency room immediately with any questions or concerns. Patient Instructions: Discussion: A detailed discussion was provided to the patient with specific reference to etiology, pathology, alternate treatment options, and prognosis. All risks and complications (including side effects) with each treatment/medication alternative were outlined in detail including but not limited to: Pain, swelling, numbness,loss of function, loss of limb, bleeding, hematoma, scarring, failure to relieve condition, surgery, additional/revisional surgery, reflex sympathetic dystrophy, complex regional pain syndrome, reoccurrence of deformity, joint stiffness, flail toe, bone and/or soft tissue infection, blood clots, pulmonary embolism, possible ,delayed or non-healing. X-rays, graphs and drawings were all used to assist with patient comprehension when appropriate. All patients questions were answered and stated they fully understood. No guarantee as to results or outcome of treatment was made. I have discussed with the patient or legally responsible person prior to obtaining consent: the risks, potential benefits and drawbacks, significant alternatives, potential for problems related to recuperation, likelihood of success, and possible results of non-treatment, and the patient or the legally responsible person has agreed to proceed. [id number] 10:17:21 [facility]owf[facility]8775-29-40 10:17:21 Diagnosis Abnormal foot finding - Prim lionel [facility]Rzygrrw4647-19-24 10:17:21 [facility] HospitalLikqacx7114-80-61 13:36:41 [facility]wytn9155-59-67 13:36:41* Gerardo Padilla DPM - 11/16/2023 12:40 PM CDT CHIEF COMPLAINT: HYPERKERATOSIS, RIGHT SUB 5TH METATARSAL HEAD [facility] HISTORY OF PRESENT ILLNESS: Patient states he recently moved from [place], [place], and has not yet been established with a sheet metal worker helper, approximately July 2023 Patient requesting evaluation of the lower extremity to help reduce chances of complications in the lower extremity due to multiple high risk comorbidities Patient states nails are painful, thick, and elongated. Patient states unable to care for her lower extremity due to stroke OBJECTIVE: PHYSICAL EXAM OF THE LOWER EXTREMITY VASCULAR: (+) 1/4 pitting edema symmetrical to bilateral lower extremity (-) ecchymosis (-) erythema 1/4 Dorsal pedis pulse, bilateral 1/4 Posterior tibial pulse, bilateral (+) normal Capillary Refill time (+) varicosities, (-) pedal hair growth NEUROLOGICAL: (+) sensation with 5.07 [place] Mariela monofilament examination to the most distal lower extremity (-) tinel's sign (-) clonus present (+) normal response to hot, cold, sharp, blunted and vibratory sensations DERMATOLOGICAL: (+) Nails are thick, yellow, elongated. Debrided without complications (-) open wounds (-) signs of infection (-) ischemic tissue (-) macerations (-) abscess (+) normal temperature when compared to contralateral limb (+) normal color, tugor, and elasticity MUSCULOSKELETAL: (-) pain on palpation, BILATERAL lower extremity (+) Semi-rigid hammertoe deformities, BILATERAL (-) other gross osseous abnormalities 4/5 muscle strength, left lower extremity 5/5 muscle strength, right lower extremity (-) evidence of compartment syndrome (-) evidence of deep vein thrombosis ASSESSMENT: Paronychia, nails 1-10 Onychomycosis, bilateral feet --- History of stroke, 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 - Edema - compression stockings advised - Shoes - patient educated to obtain appropriate shoes with custom inserts - Return 12 weeks for routine pedal care Patient advised to report to my clinic or the emergency room immediately with any questions or concerns. Patient Instructions: Discussion: A detailed discussion was provided to the patient with specific reference to etiology, pathology, alternate treatment options, and prognosis. All risks and complications (including side effects) with each treatment/medication alternative were outlined in detail including but not limited to: Pain, swelling, numbness,loss of function, loss of limb, bleeding, hematoma, scarring, failure to relieve condition, surgery, additional/revisional surgery, reflex sympathetic dystrophy, complex regional pain syndrome, reoccurrence of deformity, joint stiffness, flail toe, bone and/or soft tissue infection, blood clots, pulmonary embolism, possible ,delayed or non-healing. X-rays, graphs and drawings were all used to assist with patient comprehension when appropriate. All patients questions were answered and stated they fully understood. No guarantee as to results or outcome of treatment was made. I have discussed with the patient or legally responsible person prior to obtaining consent: the risks, potential benefits and drawbacks, significant alternatives, potential for problems related to recuperation, likelihood of success, and possible results of non-treatment, and the patient or the legally responsible person has agreed to proceed. [facility]ymsrym7009-38-42 13:36:41Upcoming Encounters Health Maintenance Due Date Last Done Comments Lipid Panel 1935 DTaP/Tdap/Td Vaccines (1 - Tdap) 01/07/1955 Zoster Vaccines (1 of 2) 01/07/1986 Respiratory Syncytial Virus (RSV) or >=60 (1 - 1-dose 60+ series) 1996 Pneumococcal Vaccine: 65+ Ye ars (1 of 1 - PCV) 01/07/2001 Influenza Vaccine (#1) 2023 HIB Vaccines Aged Out No longer eligi ble based on patient's age to complete this topic HPV Vaccines Aged Out No longer eligi ble based on patient's age to complete this topic Hepatitis A Vaccines Aged Out No long er eligible based on patient's age to complete this topic Hepatitis B Vaccines Aged Out No long er eligible based on patient's age to complete this topic IPV Vaccines Aged Out No longer eligi ble based on patient's age to complete this topic Meningococcal Vaccine Aged Out No armando queta eligible based on patient's age to complete this topic Rotavirus Vaccines Aged Out No longer eligible based on patient's age to complete this topic [facility]Ckvifnc0680-72-51 13:36:41 Diagnosis Abnormal foot finding - Razia Stahl Bsbkjlq1240-68-56 13:46:00[place] [address] DIAGNOSTIC IMAGING REPORT Patient Name: MITA PACHECO Date of Service: 03-30-2023 Age: 88 Sex: F Order #: [id number] Room: [facility] : 1935 X-Ray Number: [id number] Hospital Number: [id number] Admitting Physician: , Ordering Physician: JACLYN ALEJANDRA HISTORY:Head trauma, moderate-severe EXAM:CT HEAD W/O CONT Head CT scan Technique: CT scan of the head was performed without intravenous contrast. CT scanning was performed from the foramen magnum through to the vertex. This examination was performed using one or more of the following dose reduction techniques: automatic exposure control, adjustment of the mA and or kVp according to the patient's size or use of indurated iterative restriction technique. Total DLP dose 786 mGy-cm. CTDI dose 47 mGy. Findings: There are two right sided cranial valerie holes. The brain parenchyma and ventricular system are age appropriate with mild atrophy. There are low density changes seen in the white matter but without evidence of mass, hemorrhage or midline shift. No dense vessels are seen. The paranasal sinuses and orbits are unremarkable. The mastoid air cells and temporal regions are unremarkable. The region the sella turcica and midbrain are unremarkable. Vascular calcifications are seen. The posterior fossa is unremarkable. No acute bony abnormalities are seen. Impression: 1. Age appropriate changes with chronic periventricular white matter microvascular disease. 2. There are two right sided cranial valerie holes but no acute fractures [address] CT Legally authenticated by IRWIN MCCOY 2023-03-30 13:46:00KALEN FIELDS [id number] 13:46:[address] [address] DIAGNOSTIC IMAGING REPORT Patient Name: MITA PACHECO Date of Service: 03-30-2023 Age: 88 Sex: F Order #: [id number] Room: [facility] : 1935 X-Ray Number: [id number] Hospital Number: [id number] Admitting Physician: , Ordering Physician: JACLYN ALEJANDRA HISTORY:Head trauma, moderate-severe EXAM:CT HEAD W/O CONT Head CT scan Technique: CT scan of the head was performed without intravenous contrast. CT scanning was performed from the foramen magnum through to the vertex. This examination was performed using one or more of the following dose reduction techniques: automatic exposure control, adjustment of the mA and or kVp according to the patient's size or use of indurated iterative restriction technique. Total DLP dose 786 mGy-cm. CTDI dose 47 mGy. Findings: There are two right sided cranial valerie holes. The brain parenchyma and ventricular system are age appropriate with mild atrophy. There are low density changes seen in the white matter but without evidence of mass, hemorrhage or midline shift. No dense vessels are seen. The paranasal sinuses and orbits are unremarkable. The mastoid air cells and temporal regions are unremarkable. The region the sella turcica and midbrain are unremarkable. Vascular calcifications are seen. The posterior fossa is unremarkable. No acute bony abnormalities are seen. Impression: 1. Age appropriate changes with chronic periventricular white matter microvascular disease. 2. There are two right sided cranial valerie holes but no acute fractures 1906 CT There was a typographical error in the radiation dose . Total DLP dose 1029.2 mGy-cm. CTDI dose 50.[address] Legally authenticated by IRWIN MCCOY 2023-03-30 13:46:00KALEN FIELDS [id number] 13:46:00[place] [address] DIAGNOSTIC IMAGING REPORT Patient Name: MITA PACHECO Date of Service: 03-30-2023 Age: 88 Sex: F Order #: [id number] Room: [facility] : 1935 X-Ray Number: [id number] Hospital Number: [id number] Admitting Physician: , Ordering Physician: JACLYN ALEJANDRA HISTORY:Neck trauma EXAM:CT C-SPINE W/O CONT CT Cervical spine. Technique: CT scan of the cervical spine was performed without intravenous contrast. CT scanning was performed from the sphenoid sinus through to T-3. This examination was performed using one or more of the following dose reduction techniques: automatic exposure control, adjustment of the mA and or kVp according to the patient's size or use of indurated iterative restriction technique. Total DLP dose 273.4 mGy-cm. CTDI dose 11.1 mGy Findings: There is loss of the normal cervical lordosis. There is degenerative changes at the C1-C2 articulation with some ligamentous calcifications. There is multilevel disc calcifications present. There is disc space narrowing at C5-6 and C6-7. The vertebral body heights and other intervertebral disc spaces are well maintained. Mild facet arthropathy and osteophyte formation is present. The prevertebral soft tissue structures are unremarkable. Vascular calcification's are seen. No suspicious abnormalities are seen. Impression: 1. No fractures, but there are degenerative changes present. 1911 CT Legally authenticated by IRWIN MCCOY 2023-03-30 13:46:00KALEN FIELDS [id number] 08:52:19[place] [id number] DIAGNOSTIC IMAGING REPORT Patient Name: MITA PACHECO Date of Service: 07-25-2020 Age: 85 Sex: F Order #: [id number] Room: [facility] : 1935 X-Ray Number: [id number] Hospital Number: [id number] Admitting Physician: NAOMI AYALA Ordering Physician: NAOMI AYALA CT HEAD: HISTORY: Numbness of hand, stroke symptoms Comparison: CT head 07/01/2015 TECHNIQUE: Unenhanced CT axial images of the brain with sagittal and coronal reformatted images. This CT exam was performed using one or more of the following dose reduction techniques: Automated exposure control, adjustment of the MA and/or KV according to patient size or use of iterative reconstruction technique. FINDINGS: There is a left-sided subdural hematoma. It measures up to approximately 7 mm in thickness at the anterior left falx such as on image 35. There is additional subdural hematoma overlying the left frontal and parietal lobes. The subdural hematoma measures approximately 6 mm on the left on image 30. There may be very mild 3 mm left to right midline shift. There are scattered patchy foci of hypoattenuation in the periventricular and subcortical white matter which are nonspecific but likely represent the sequela of chronic small vessel ischemic disease. There is a stable area of hypodensity in the inferior left lentiform nucleus which may represent the sequela of a lacunar infarction or prominent perivascular space. There is no evidence of hydrocephalus. Carotid siphon calcifications. The visualized paranasal sinuses are unremarkable. There are old right frontal and parietal valerie holes. No calvarial-based fracture. There is a right lens implant. IMPRESSION: There is an acute left-sided subdural hematoma as detailed above. There may be very mild left to right midline shift. Close attention on follow-up is recommended. Dr. Ayala was aware of the findings at the time of dictation. Electronically Signed By: Paulino Gregg M.D., 07/25/2020 8:52 AM Legally authenticated by LLUVIA YEBOAH JR 2020-07-25 08:52:19QIANA GREGG2021-04-07 08:31:55[place] [address] DIAGNOSTIC IMAGING REPORT Patient Name: MITA PACHECO Date of Service: 07-25-2020 Age: 85 Sex: F Order #: [id number] Room: [facility] : 1935 X-Ray Number: [id number] Hospital Number: [id number] Admitting Physician: NAOMI AYALA Ordering Physician: NAOMI AYALA Exam: Chest AP History: Numbness of hand Comparison: Chest x-ray 12/11/2013 Findings: No focal consolidation, pleural effusion or pneumothorax. The cardiac and superior mediastinal silhouettes are within normal limits. Thoracic aorta calcification. Impression: No acute cardiopulmonary process. Electronically Signed By: Paulino Gregg M.D., 07/25/2020 8:31 AM Legally authenticated by LLUVIA YEBOAH JR 2020-07-25 08:31:55QIANA GREGG2021-03-05 10:52:04 [place] [id number] [place] [address] Patient Name: MITA PACHECO Patient#: [id number] Admission Date: 06/09/2020 Discharge Date: 06/22/2020 Age/Gender: 85/F Date of : 1935 HSSV/RM/BED: [facility]/A Admitting Phys: Kg Watters MD DISCHARGE SUMMARY DATE OF ADMISSION: 06/09/2020 DATE OF DISCHARGE: 06/22/2020 REASON FOR ADMISSION Patient is an 85-year-old female with history of hypertension and subdural hematoma, who was living with her , at a modified [facility], using a rolling walker. It appears she start having some left-sided weakness and presented to [facility] on May [facility]. She was admitted, had some imaging studies, and confirmed right ischemic CVA. I believe she was put on aspirin and Plavix. She was there for over a week and it appears finally on the was transferred to [facility]. They thought she was medically stable and finished her workup, and of course still having problems with mobility because of the CVA. Consultations at [facility] [place]. HOSPITAL COURSE Patient was admitted on the and appeared to be about a moderate to max assist. Diagnostic monitored her closely and I believe Norvasc 5 daily was added to her regimen. She did well in therapy, made good steady progress. She was here for close to 2 weeks. She improved to standby assistance for transfers and gait and along with bathing, toileting, and dressing, and she was modified independent for bed mobility, feeding, and grooming. On acute care at [place], physicians wanted her to take the aspirin for about 2 more weeks after transfer, so we did this and since it was close to the day of discharge, I had her discontinue her aspirin on discharge. PROCEDURES PERFORMED Physical therapy, occupational therapy. CONDITION ON DISCHARGE Standby assistance to modified independent. PHYSICAL EXAMINATION On day of discharge: CARDIAC: Regular rate and rhythm. LUNGS: Fairly clear. No wheezing or rhonchi. ABDOMEN: Soft, positive bowel sounds, nontender. DISCHARGE INSTRUCTIONS Physical activity ad mckenna. DIET Regular. MEDICATIONS Discontinue aspirin, continue Plavix 75 daily and with home medications including Tylenol, spironolactone, fish oil, Synthroid, Prinivil, simvastatin, calcium, and add Norvasc also. Legally authenticated by JERROD PETERSON 2020-06-24 09:37:49 FOLLOWUP Patient followup with primary care doctor and home health physical therapy and occupational therapy to be ordered. DISCHARGE DIAGNOSES Right frontal ischemic cerebrovascular accident. Hypertension. Hypothyroidism. History of subdural hematoma. Kg Watters MD TT: 06/22/2020 10:52:04 SBO/MODL /[id number] Electronically Authenticated by: Kg Watters on 06/24/2020 09:37 AM [employer] Legally authenticated by JERROD PETERSON 2020-06-24 09:37:49RINA WATTERS 2020-06-21 14:52:36 [place] [address] Patient Name: MITA PACHECO Patient#: [id number] Admission Date: 06/09/2020 Date of : 1935 Age/Gender: 85/F HSSV/RM/BED: [facility]/A Admitting Phys: Kg Watters MD PROGRESS NOTE DATE: 06/21/2020 SUBJECTIVE Patient was seen this morning. She was sitting on the side of bed finishing breakfast. She was in good spirits. She states she slept fair. She had no new or acute issues. PHYSICAL EXAMINATION CARDIAC: Regular rate and rhythm. LUNGS: Clear. No wheezing or rhonchi. ABDOMEN: Soft, positive bowel sounds, nontender. ASSESSMENT/PLAN Right cerebrovascular accident. The patient is making good progress and overall supervision if not modified independent for simple self-care skills such as feeding and grooming. We are looking at discharge tomorrow. We will order some home health therapy. Will need to do discharge functional level evaluations today and try to teach home program. As stated previously, we will stop her baby aspirin on discharge and continue with Plavix. I believe a tele neuro physician wanted the aspirin for about 17 days on transfer and she has been here for 15 or 14, so we will just stop it on discharge. She will be given Plavix prescription if needed. Kg Watters MD TT: 06/21/2020 14:52:36 SBO/MODL /[id number] Electronically Authenticated by: Kg Watters on 06/22/2020 08:49 AM [employer] Legally authenticated by JERROD PETERSON 2020-06-22 08:49:51ONERINA STEPHEN 2020-06-20 12:34:13 [place] [address] Patient Name: MITA PACHECO Patient#: [id number] Admission Date: 06/09/2020 Date of : 1935 Age/Gender: 85/F HSSV/RM/BED: [facility]/A Admitting Phys: Kg Watters MD PROGRESS NOTE DATE: 06/20/2020 SUBJECTIVE The patient was seen this morning, she was doing fine. She was in room sitting on side of bed. No acute or new issues, in good spirits. PHYSICAL EXAMINATION CARDIAC: Regular rate and rhythm. LUNGS: Poor effort, but fairly clear. ABDOMEN: Soft, positive bowel sounds. Nontender. ASSESSMENT/PLAN Right cerebrovascular accident. The patient doing well. We are looking at probable discharge Thursday. She is basically supervision to modified independent and ambulating 150 feet. Will be discharged on Thursday, the and I believe acute care physicians, such as her neurologist, wanted her aspirin stopped around the or , so on discharge, will stop aspirin and continue Plavix per their recommendations. Kg Watters MD TT: 06/20/2020 12:34:13 SBO/MODL /[id number] Electronically Authenticated by: Kg Watters on 06/21/2020 08:14 AM [employer]URE [employer] Legally authenticated by JERROD PETERSON 2020-06-21 08:14:42ONERINA STEPHEN 2020-06-19 09:34:57 [address] [place] [address] Patient Name: MITA PACHECO Patient#: [id number] Admission Date: 06/09/2020 Date of : 1935 Age/Gender: 85/F HSSV/RM/BED: [place] [address]/A Admitting Phys: Kg Watters MD PROGRESS NOTE DATE: 06/19/2020 Patient was doing fine, seen in her room. She was sitting up, finished breakfast, no acute complaints, in good spirits. PHYSICAL EXAMINATION CARDIAC: Regular rate and rhythm. LUNGS: Poor effort. No wheezing or rhonchi. ABDOMEN: Soft, positive bowel sounds, nontender. ASSESSMENT Right cerebrovascular accident. Patient continues making steady progress, working on transfers, gait, and general endurance and physical therapy. Team conference later today. Will talk with team members about progress, further goals, and discharge plans. Probably set discharge date in the meeting. Kg Watters MD TT: 06/19/2020 09:34:57 SBO/MODL /[id number] Electronically Authenticated by: Kg Watters on 06/20/2020 08:22 AM [employer]URE [employer] Legally authenticated by JERROD PETERSON 2020-06-20 08:22:09RINA WATTERS 2020-06-18 10:26:[address] [address] Patient Name: MITA PACHECO Patient#: [id number] Admission Date: 06/09/2020 Date of : 1935 Age/Gender: 85/F HSSV/RM/BED: [place] [address]/A Admitting Phys: Kg Watters MD PROGRESS NOTE DATE: 06/18/2020 SUBJECTIVE The patient was seen this morning. She was sitting up on the side of bed, talking to the speech therapist. She had no new or acute issues. In good spirits. PHYSICAL EXAMINATION CARDIAC: Regular rate and rhythm. LUNGS: Poor effort but clear. No wheezing. ABDOMEN: Soft, positive bowel sounds. ASSESSMENT/PLAN Right cerebrovascular accident. Patient continues to make steady improvement. Physical Therapy reports still possibly minimal assistance for transfers and hopefully this week will work on gait. Occupational Therapy working on bathing, toileting, dressing, and is still about a minimal to moderate assistance. Speech Therapy is working with her also as far as cognition, but appears to have minimal cognitive deficits. Good progress. Continue full rehab program. Team conference tomorrow. Kg Watters MD TT: 06/18/2020 10:26:52 SBO/MODL /[id number] Electronically Authenticated by: Kg Watters on 06/19/2020 08:31 AM APERTURE MASK ETCHER Legally authenticated by JERROD PETERSON 2020-06-19 08:31:51RINA WATTERS 2020-06-17 10:37:40 [place] [address] Patient Name: MITA PACHECO Patient#: [id number] Admission Date: 06/09/2020 Date of : 1935 Age/Gender: 85/F HSSV/RM/BED: [facility]/A Admitting Phys: Kg Watters MD PROGRESS NOTE DATE: 06/17/2020 SUBJECTIVE The patient was doing fine. She was in her room. She had finished her breakfast. She was resting. She had no acute or new issues, making slow, steady progress in therapy. PHYSICAL CARDIAC: Regular rate and rhythm. LUNGS: Poor effort, but clear. No wheezing. ABDOMEN: Soft, positive bowel sounds, nontender. ASSESSMENT/PLAN Right cerebrovascular accident. The patient continues making steady improvement. She is overall still about a tlcywun-ka-zlvldzyp assistance for transfers and advanced self-care skills such as bathing, toileting, and dressing. Team conference Thursday. Continue full rehab program tomorrow. Kg Watters MD TT: 06/17/2020 10:37:40 SBO/MODL /[id number] Electronically Authenticated by: Kg Watters on 06/18/2020 08:20 AM APERTURE MASK ETCHER Legally authenticated by JERROD PETERSON 2020-06-18 08:20:24ONERINA STEPHEN 2020-06-16 08:22:13 [place] [address] Patient Name: MITA PACHECO Patient#: [id number] Admission Date: 06/09/2020 Date of : 1935 Age/Gender: 85/F HSSV/RM/BED: [place]/A Admitting Phys: Kg Watters MD PROGRESS NOTE DATE: 06/16/2020 The patient was seen this morning. She was doing well. She was resting in bed. States she slept well. Participated well in therapy. No acute or new issues this morning, in good spirits. PHYSICAL EXAMINATION CARDIAC: Regular rate and rhythm. LUNGS: Fairly clear. No wheezing, rhonchi, or rales. ABDOMEN: Soft, positive bowel sounds, nontender. ASSESSMENT/PLAN Right cerebrovascular accident. The patient appears to be participating and making steady progress. Still about a minimal to moderate assistance for bathing, toileting, and dressing. Working on transfers, standing and gait and physical therapy. No acute problems. Continue rehab. Kg Watters MD TT: 06/16/2020 08:22:13 SBO/MODL /[id number] Electronically Authenticated by: Kg Watters on 06/17/2020 08:33 AM APERTURE MASK ETCHER Legally authenticated by JERROD PETERSON 2020-06-17 08:33:22ONERINA STEPHEN 2020-06-15 08:17:12 [place] [address] Patient Name: MITA PACHECO Patient#: [id number] Admission Date: 06/09/2020 Date of : 1935 Age/Gender: 85/F HSSV/RM/BED: [place]/451/A Admitting Phys: Kg Watters MD PROGRESS NOTE DATE: 06/15/2020 Patient was seen in her room. She was sitting on side of the bed. She was finishing her breakfast. She was in no distress. Had no acute issues. States she slept fairly well through the night. Reports some mild stiffness this morning. No chest pain or shortness of breath. PHYSICAL EXAMINATION CARDIAC: Regular rate and rhythm. LUNGS: Poor effort, but fairly clear. No wheezing. ABDOMEN: Soft, positive bowel sounds. ASSESSMENT/PLAN Right cerebrovascular accident. Patient appears to be participating fairly well and making some functional progress during the first 3 or 4 days of therapy. We will continue working on bed mobility, transfers, and standing and physical therapy. Occupational therapy focusing on self-care skills, still about a moderate assistance for bathing, toileting, and dressing. Setup for feeding and grooming overall. Kg Watters MD TT: 06/15/2020 08:17:12 SBO/MODL /[id number] Electronically Authenticated by: Kg Watters on 06/16/2020 07:47 AM APERTURE MASK ETCHER Legally authenticated by JERROD PETERSON 2020-06-16 07:47:55RINA WATTERS 2020-06-14 19:06:20 [place] [address] Patient Name: MITA PACHECO Patient#: [id number] Admission Date: 06/09/2020 Date of : 1935 Age/Gender: 85/F HSSV/RM/BED: [facility]/A Admitting Phys: Kg Watters MD PROGRESS NOTE DATE: 06/14/2020 SUBJECTIVE The patient was seen this morning. She was in her room. She was finishing her breakfast. She was in no distress. Had no acute issues. Participated in therapy yesterday. PHYSICAL EXAMINATION CARDIAC: Regular rate and rhythm. LUNGS: Poor effort. No wheezing or rhonchi. ABDOMEN: Soft, positive bowel sounds. ASSESSMENT/PLAN Right cerebrovascular accident. The patient continues making steady functional improvement. Physical Therapy will continue working on transfers and balance, along with endurance. Occupational Therapy will focus on bathing, toileting, dressing, which were minimal to moderate assistance. Diagnostic to monitor medical issues. Kg Watters MD TT: 06/14/2020 19:06:20 SBO/MODL /[id number] Electronically Authenticated by: Kg Watters on 06/15/2020 07:36 AM APERTURE MASK ETCHER Legally authenticated by JERROD PETERSON 2020-06-15 07:36:34ONERINA STEPHEN 2020-06-13 09:02:15 [place] [address] Patient Name: MITA PACHECO Patient#: [id number] Admission Date: 06/09/2020 Date of : 1935 Age/Gender: 85/F HSSV/RM/BED: [facility]/A Admitting Phys: Kg Watters MD PROGRESS NOTE DATE: 06/13/2020 The patient was doing fine. Seen this morning. She was sitting up in bed eating breakfast. She states she slept fair. She was in good spirits. No acute issues. PHYSICAL EXAMINATION CARDIAC: Regular rate and rhythm. LUNGS: Clear. No wheezing rhonchi. ABDOMEN: Soft, positive bowel sounds. ASSESSMENT/PLAN Right cerebrovascular accident. The patient appears to be making good progress, has just had 2 or 3 days of therapy already, but a moderate to minimal assistance. Will continue working on transfers, standing, and try to work on gait this next several days in physical therapy. Occupational therapy will work on bathing, toileting, and dressing. Diagnostic group to monitor medical issues including hypertension. Kg Watters MD TT: 06/13/2020 09:02:15 SBO/MODL /[id number] Electronically Authenticated by: Kg Watters on 06/14/2020 07:45 AM APERTURE MASK ETCHER Legally authenticated by JERROD PETERSON 2020-06-14 07:45:52ONERINA STEPHEN 2020-06-12 13:19:49 [place] [address] Patient Name: MITA PACHECO Patient#: [id number] Admission Date: 06/09/2020 Date of : 1935 Age/Gender: 85/F HSSV/RM/BED: [facility]/A Admitting Phys: Kg Watters MD PROGRESS NOTE DATE: 06/12/2020 The patient was doing fine. Seen this morning. She was resting in bed. No distress, in good spirits. Finished breakfast, waiting for therapy. PHYSICAL EXAMINATION CARDIAC: Regular rate and rhythm. LUNGS: Poor effort. No wheezing. ABDOMEN: Soft, positive bowel sounds. ASSESSMENT/PLAN Right cerebrovascular accident. We had a team conference earlier and patient doing fairly well. She is making steady functional improvement. She is overall about a moderate assistance except for feeding and grooming which of course are setup. Continue working with her. Plan to reconference next week. No acute issues. Diagnostic group to monitor medical management. Kg Watters MD TT: 06/12/2020 13:19:49 SBO/MODL /[id number] Electronically Authenticated by: Kg Watters on 06/13/2020 08:15 AM APERTURE MASK ETCHER Legally authenticated by JERROD PETERSON 2020-06-13 08:15:45RINA WATTERS 2020-06-11 14:06:30[place] [id number] DIAGNOSTIC IMAGING REPORT Patient Name: MITA PACHECO Date of Service: 06-11-2020 Age: 85 Sex: F Order #: [id number] Room: [address] [place] [address] : 1935 X-Ray Number: [id number] Hospital Number: [id number] Admitting Physician: KG WATTERS Ordering Physician: KG WATTERS Exam: Modified barium swallow Comparison: No comparison available HISTORY: Dysphasia TECHNIQUE: Fluoroscopy time was 1 minute and 23 seconds Findings: The patient was observed under fluoroscopy consuming Varibar thin, Varibar nectar and Varibar pudding. The examination is within normal limits. No evidence of aspiration. Please refer to the speech pathologist's dictation for further details of the procedure. IMPRESSION: The examination is within normal limits. Electronically Signed By: Paulino Gregg M.D., 06/11/2020 2:06 PM Legally authenticated by LLUVIA YEBOAH JR 2020-06-11 14:06:[id number] 13:36:13 [place] [address] Patient Name: MITA PACHECO Patient#: [id number] Admission Date: 06/09/2020 Date of : 1935 Age/Gender: 85/F HSSV/RM/BED: [facility]/A Admitting Phys: Kg Watters MD CONSULTATION NOTE DATE OF CONSULTATION: ATTENDING PHYSICIAN: Kg Watters MD REFERRING PHYSICIAN: Kg Watters MD CONSULTATION REQUESTED FOR Hypertension. CHIEF COMPLAINT Hypertension. HISTORY OF PRESENT ILLNESS An 85-year-old female who was transferred to acute rehab after having an acute right thalamic stroke. The patient states her blood pressure did go up a little last night, but is currently controlled at 138/78. No modifying factors. No associated signs and symptoms. Ongoing since onset of stroke. PAST MEDICAL HISTORY Hypertension, hyperlipidemia, TIA, migraines, hypothyroidism, subdural hematoma with evacuation 6 years ago. ALLERGIES SEE LIST. SOCIAL HISTORY Patient lives at home with her . Denies tobacco, alcohol, or illicit drug use. FAMILY HISTORY Sister positive for brain tumor. Otherwise, discussed and noncontributory. REVIEW OF SYSTEMS 10-point review of systems conducted and deemed negative except what is listed in HPI. MEDICATIONS Reviewed. EXAM VITAL SIGNS: Stable. Patient is afebrile. GENERAL: Patient is awake, alert, and oriented x3. No acute distress. HEAD, EARS, EYES, NOSE, THROAT, NECK: Normocephalic, atraumatic. Pupils equal, round, and reactive to light and accommodation. LUNGS: Clear to auscultation bilaterally. ABDOMEN: Soft, nontender, nondistended. Bowel sounds positive. LOWER EXTREMITIES: No clubbing, cyanosis, or pedal edema. ASSESSMENT/PLAN Hypertension. We will resume home medications. Patient is on long-acting propranolol for migraine prevention. We will monitor blood pressure, check a.m. labs. For any additional information, please see chart and orders. Legally authenticated by SHAAN MOHR 2020-06-12 01:32:31 DICTATED BY: VALENTE Vazquez MD TT: 06/11/2020 13:36:13 CRG/MODL /[id number] Electronically Authenticated by: Sivan Garduno MD on 06/12/2020 01:32 PM APERTURE MASK ETCHER Legally authenticated by SHAAN MOHR 2020-06-12 01:32:31SUSAN GARDUNO 2020-06-11 08:18:12 [place] [address] Patient Name: MITA PACHECO Patient#: [id number] Admission Date: 06/09/2020 Date of : 1935 Age/Gender: 85/F HSSV/RM/BED: [facility]/A Admitting Phys: Kg Watters MD PROGRESS NOTE DATE: 06/11/2020 Patient was seen this morning in room. She was sitting up in her chair. She was eating breakfast. She appeared to have no new or acute complaints. She continues having some mild left-sided weakness. PHYSICAL CARDIAC: Regular rate and rhythm. LUNGS: Poor effort. No wheezing or rhonchi. ABDOMEN: Soft, positive bowel sounds. ASSESSMENT/PLAN Right cerebrovascular accident. Continue Plavix and aspirin per acute care neurology. We will have therapy evaluations today. Speech will see patient for dysphagia and mild dysarthria. Occupationally work on self-care skills and Physical Therapy work on mobility including gait and balance. I mistakenly consulted Dr. Reilly, but it appears diagnostic group was seeing patient at [place], so consulted diagnostic group to see patient for medical issues and canceled Dr. Reilly's consult last night. Kg Watters MD TT: 06/11/2020 08:18:12 SBO/MODL /[id number] Electronically Authenticated by: Kg Watters on 06/12/2020 08:01 AM APERTURE MASK ETCHER Legally authenticated by JERROD PETERSON 2020-06-12 08:01:21RINA WATTERS 2020-06-10 11:12:[address] [address] Patient Name: MITA PACHECO Patient#: [id number] Admission Date: 06/09/2020 Date of : 1935 Age/Gender: 85/F HSSV/RM/BED: [facility]/A Admitting Phys: Kg Watters MD HISTORY AND PHYSICAL REASON FOR ADMISSION Right ischemic cerebrovascular accident. HISTORY OF PRESENT ILLNESS Patient is a pleasant 85-year-old female with a history of hypertension, hypothyroidism, and subdural hematoma back in 2013, who was living independently with her in [place], when it appears she noted some left-sided weakness and slurred speech on May 31. She was brought to [facility] and found to have a possible CVA. She was admitted. She had an initial CT scan, which showed no acute changes, but because of her history of subdural hematoma, they did not give tPA. She had an MRI, which did confirm a right thalamic ischemic CVA. She had a teleneurology consult. I believe they put patient on Plavix or aspirin. She had some increased dysphagia and weakness on the . She had another CT scan, which showed no acute changes and the next day, the neurologist put her on Plavix and aspirin dual anti-platelet therapy for 3 weeks, and then back to 1 medication, which I assume was Plavix. Also blood pressure was elevated, and she had some adjustments in her blood pressure medications. She finally was thought to be stable, still having some weakness and problems with mobility and balance, so was transferred to [facility] on the , after being there for about 9 days. She was seen this morning in her room with her daughter. She appeared to be doing well. She had no acute issues. She reports still some heaviness and poor coordination on the left side. ALLERGIES NEURONTIN, HYDROCHLOROTHIAZIDE, TRIAMTERENE. PRESENT MEDICATIONS Plavix 75 daily, propranolol CR 80 daily, baclofen 10 daily, spironolactone 25 daily, fish oil 2000 daily, multivitamin 1 daily, coenzyme Q10 100 daily, calcium with vitamin D 600/400 one daily, Synthroid 0.05 daily, Prinivil 20 b.i.d., simvastatin 20 daily. ILLNESSES Hypertension, hypothyroidism, subdural hematoma. FAMILY HISTORY Noncontributory. REVIEW OF SYSTEMS MUSCULOSKELETAL: No significant arthralgias, myalgias. CARDIAC: No chest pain or palpitations. PULMONARY: No resting shortness of breath or productive cough. GI: No nausea, vomiting. Positive for some mild dysphagia. NEUROLOGIC: Positive for poor coordination on the left side along with some Legally authenticated by JERROD PETERSON 2020-06-11 07:41:05 slurred speech. No seizures. No syncope. CONSTITUTIONAL: No recent fever or chills. PREVIOUS FUNCTIONAL HISTORY Patient was independent, using no assistive device, doing all self-care skills and director payment. SOCIAL HISTORY The patient lives in [place] with her . She plans to go back home with her . She has good family support. She does have a rolling walker, but was not using it. PHYSICAL EXAMINATION GENERAL: Pleasant elderly female, resting in bed, in no acute distress. HEENT: Extraocular muscles appear intact. Pupils equal, round. Sclerae nonicteric. NECK: Supple. No carotid bruits. CARDIAC: Regular rate and rhythm. No significant murmur. LUNGS: Fairly clear. No wheezing, rhonchi, or rales. ABDOMEN: Soft, positive bowel sounds, nontender. EXTREMITIES: Radial pulses intact at both wrists. Feet have no significant edema. NEUROLOGIC: Alert, appears oriented to name, place, not exact time. Memory good. Attention span good. Cranial nerves 2-12 grossly intact. Sensory intact to light touch in both arms. Motor exam right upper extremity 5/5, left upper extremity - 5/5, right lower extremity 5/5, left lower extremity -5/5. Appears to have some mild coordination deficits on the left. FUNCTIONAL STATUS The patient appears set up for feeding, grooming, hygiene, and possibly dressing, and about contact guard, bathing, toileting, transfers, and gait because of balance and coordination issues. LABORATORY DATA Not ordered. WOUNDS None noted. DIAGNOSIS Right ischemic cerebrovascular accident, status change as compared to preadmission assessment. It may have improved slightly. Appears to be contact guard or worse, minimal assistance. SPECIAL CONSIDERATIONS AFFECTING PLAN OF CARE There does not appear to be any special considerations. Patient should be able to do 3 hours of therapy 5 days a week in a multidisciplinary rehab approach. ASSESSMENT/PLAN 1. Right ischemic cerebrovascular accident. The patient appears to be doing well. Will have initial evaluations tomorrow, Thursday. Physical Therapy will assess and work on transfers, standing, gait with assistive device. Occupational Therapy will mostly focus on bathing, toileting, and dressing, and possibly even some homemaking activities. Speech will see patient as far as her mild dysarthria and dysphagia. As far as medications, the patient appears to be on Plavix, and was supposed to be also on aspirin from what I could determine, so will add aspirin 81 daily. Plan to give these medications for about 17 more days to complete 3-week course per Neurology. The patient will be doing 3 hours of therapy 5 days a week in a multidisciplinary rehab approach. Will expect stay of possibly 8-10 days, and hopefully get modified independent return home with and possibly some further therapy if appropriate. Rehab nurses will administer Legally authenticated by JERROD PETERSON 2020-06-11 07:41:05 all medications. They will do the vital signs. They will monitor for bowel and bladder problems. They will monitor for skin integrity issues. Social Work will help patient get any equipment or further therapy ordered by the physicians. Rehab physician will coordinate the treatment team and have meetings weekly to discuss progress, prognosis, and length of stay. 2. Hypertension. Continue present medications including the Prinivil, spironolactone. We will consult Dr. Reilly to follow and monitor medical issues including hypertension. 3. Hypothyroidism. Continue Synthroid. 4. Hyperlipidemia. Continue statin. 5. Rehab goals. We will try to get patient to modified independent. REHABILITATION POTENTIAL Good. ESTIMATED LENGTH OF STAY 10 days. DISPOSITION Home with . Kg Watters MD TT: 06/10/2020 11:12:07 SBO/MODL /[id number] Electronically Authenticated by: Kg Watters on 06/11/2020 07:41 AM APERTURE MASK ETCHER Legally authenticated by JERROD PETERSON 2020-06-11 07:41:05RINA WATTERS
[2024-02-28] MEDS ORDERED: IBUPROFEN 200 MG TAB PO ONE (20:42)
[2024-02-28] MEDS ORDERED: ACETAMINOPHEN 325 MG TABLET ONE (20:43)
--- NOTE | 2024-02-28 21:24 | RAD REPORT ---
EXAMINATION: ONE VIEW CHEST XR CLINICAL INDICATION: Female, 89 years old.,FEVER TECHNIQUE: Frontal chest projection is submitted. Examination is limited by patient positioning and t echnique. COMPARISON: 01/14/2024 FINDINGS: The lungs are suboptimally inflated with bibasilar atelectatic changes. No pneumothorax or sizable e ffusion. The heart is normal in size. Mediastinal contours are unchanged with tortuosity of the arch and descending aorta, with atherosclerotic calcifications. IMPRESSION: No acute intrathoracic abnormalities.
[2024-02-28 21:27] LABS: Absolute Lymphocytes (CBC) 0.2 K/uL (0.7-4.9); Absolute Monocytes 1.8 K/uL (0.1-1.3); Absolute Neutrophil 13.8 K/uL (1.8-8.0); Basophils % 0.3 % (0-1.3); Hematocrit 32.9 % (36.0-45.0); Hemoglobin 11.4 g/dL (12.0-15.0); Lymphocytes % 1.4 % (15.3-44.8); MCH 32.4 pg (27.0-35.0); MCHC 34.7 g/dL (32.0-36.0); MCV 93.4 fL (80-100); MPV 9.1 fL (7.6-11.3); Monocytes % 11.3 % (3.3-12.3); Platelets 161 thou/uL (152-406); RBC Red Blood Cell Count 3.52 M/uL (3.86-4.86); Red Cell Distribution Width 13.1 % (12.1-15.2)
[2024-02-28 21:31] LABS: PT Prothrombin Time 13.1 SECONDS (9.4-12.5); PTT, Activated Partial Thromb 28.5 SECONDS (24.3-36.9); Protime INR 1.18
[2024-02-28 21:31] LABS: SARS-CoV-2 Antigen CONTROL BLUE LINE VIS/BG OK; SARS-CoV-2 Antigen Rapid Res Negative (Negative)
[2024-02-28 21:42] LABS: Albumin 2.7 g/dL (3.4-5.0); Albumin/Globulin Ratio 0.8 (1.1-1.8); Anion Gap 11.1 mEq/L (5.0-15.0); Bilirubin Total 1.4 mg/dL (0.2-1.0); Globulin 3.3 g/dL (2.3-3.5); Potassium 4.1 mEq/L (3.5-5.1)
[2024-02-28 22:17] LABS: Band Neutrophils 17 % (0-1); Differential Total Cells Count 100; Lymphocytes 2 % (15-42); Monocytes 5 % (0-10); Reactive Lymphocytes 1 %; Segmented Neutrophils 74 % (40-80)
[2024-02-28 22:17] LABS: Specific Gravity 1.013 (1.005-1.030); Sqamous Epithelial <5 /HPF (None Seen); Urine Bacteria <20 /HPF (<20); Urine Bilirubin NEGATIVE (Negative); Urine Blood Trace (Negative); Urine Clarity Extremely Turbid (Clear); Urine Color Light-Yellow (Yellow); Urine Crystals Unidentified Few /HPF (None Seen); Urine Culture Reflex Order REFLEXED; Urine Glucose NEGATIVE (Negative); Urine Ketones NEGATIVE (Negative); Urine Microscopic Reflex YN ORDER UMIC; Urine Mucus Slight /HPF (None Seen); Urine Nitrite 1+ (Negative); Urine Protein TRACE (Negative); Urine Urobilinogen Normal (Normal); Urine WBC >50 /HPF (<5); Urine WBC Clump Rare /HPF (None Seen); Urine Yeast (Budding) Few /HPF (None Seen); Urine pH 6.5 (5.0-7.0)
[2024-02-28 22:18] LABS: Blood Morphology Comment NOT SEEN (NOT SEEN); Platelet Estimate ADEQ
[2024-02-28] MEDS ORDERED: CEFTRIAXONE 1000 MG/VIAL ONE (22:26)
[2024-02-28] MEDS ORDERED: NA CHLORIDE 0.9% 1,000 ML ONE (22:27)
[2024-02-28] MEDS ORDERED: NA CHLORIDE 0.9% 50 ML ONE (22:27)
--- NOTE | 2024-02-28 23:03 | RAD REPORT ---
EXAMINATION: CT Abdomen Pelvis W Contrast CLINICAL INDICATION: Female, 89 years old. fever, recent pelvic surgery TECHNIQUE: CT abdomen and pelvis was performed, after the administration of IV contrast, as per [facility]. Axial, sagittal and coronal reconstructions were obtained. One or more of the following dose reduction techniques were used: Automated exposure control, adjustment of the mA and k V according to patient size, and iterative reconstruction. Unless otherwise specified, incidental findings do not require dedicated imaging follow-up. COMPARISON: No prior exam. FINDINGS: LOWER CHEST: The visualized lung bases are clear. LIVER: Normal in size and contour. No focal lesion. BILIARY SYSTEM: Few layering gallstones near the fundus. SPLEEN: Normal size. No focal lesion. PANCREAS: No mass, ductal dilation, or hitesh-pancreatic fluid. ADRENALS: Normal; no mass. KIDNEYS: Patchy hypoenhancement throughout the mid to lower pole left kidney. Mild perinephric fat st randing. No hydronephrosis. 4.6 cm fluid density cyst of the left superior renal pole. URINARY BLADDER: Unremarkable. GASTROINTESTINAL TRACT: No evidence of free air, significant intra-abdominal free fluid, bowel obstru ction or abscess. APPENDIX: Appendix not visualized, but no inflammatory changes in region of appendix. LYMPH NODES: No lymphadenopathy. MUSCULOSKELETAL: No acute or suspicious osseous abnormality. 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 IMPRESSION: Patchy enhancement involving the mid to lower renal cortex, concerning for pyelonephritis. No evidenc e of calculi or obstruction. 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 Tiny layering gallstones.
--- NOTE | 2024-02-28 23:26 | EDPHYS ---
Physician Documentation [facility] Name: Mita Mckeon Age: 89 yrs Sex: Female : 1935 Arrival Date: 02/28/2024 Time: 19:43 Bed 3 Private MD: ED Physician Yandel Barrera HPI: 02/27 20:17 This 89 yrs old Female presents to ER via EMS with complaints of Weakness. rn 20:17 The patient presents to the emergency department with weakness of the entire body, rn generalized weakness. Onset: The symptoms/episode began/occurred today. Severity of symptoms: At their worst the symptoms were moderate in the emergency department the symptoms are unchanged. Current symptoms:. The patient has not experienced similar symptoms in the past. Patient reports had trouble getting up due to pain from what she believes was her sciatica pain. Has had this pain before. Hurts to move. Denies any recent injury but does have a history of recurrent falls. Patient reports had pelvic reconstruction surgery February 01 and has been healing well without any discharge or increased pain or redness. Noted by EMS to be febrile to 103. Patient reports sinus congestion and mild cough but denies shortness of breath. No abdominal pain or vomiting.. Historical: - Home Meds: 20:52 levothyroxine 50 mcg capsule daily [Active]; lisinopril 20 mg Oral tablet 2 times per vc1 day [Active]; spironolactone 25 mg Oral tablet daily [Active]; pantoprazole 40 mg oral tablet, delayed release (enteric coated) daily [Active]; Lipitor 40 mg Oral tablet every evening [Active]; baclofen 10 mg Oral tablet daily [Active]; ropinirole 1 mg oral tablet daily [Active]; amlodipine 5 mg tablet nightly [Active]; Metamucil Smooth Texture Oral daily [Active]; Estraderm TD vaginal cream 3X week [Active]; Lexapro 5 mg Oral tablet daily [Active]; Vitamin D Oral daily [Active]; biotin 1,000 mcg oral tablet,chewable [Active]; CoQ-10 100 mg oral capsule daily [Active]; tramadol 50 mg Oral tablet as needed [Active]; melatonin 5 mg Oral capsule nightly [Active]; gabapentin 300 mg oral capsule 2 caps 3 times per day [Active]; 21:01 Colace 100 mg oral capsule 2 cap every day at bedtime [Active]; vc1 - PMHx: 20:09 Hypertensive disorder; Cerebrovascular accident; Transient cerebral ischemia; vc1 - PSHx: 20:09 None; vc1 - Immunization history:: Adult Immunizations up to date. - Infectious Disease History:: Denies. - Social history:: Smoking status: Patient denies any tobacco usage or history of. - Family history:: not pertinent. - Hospitalizations: : No recent hospitalization is reported. ROS: 20:17 Constitutional: Negative for fever, chills, and weight loss, ENT: Positive for sinus rn congestion Neck: Negative for injury, pain, and swelling, Cardiovascular: Negative for chest pain, palpitations, and edema, Respiratory: Negative for shortness of breath, cough, wheezing, and pleuritic chest pain, Abdomen/GI: Negative for abdominal pain, nausea, vomiting, diarrhea, and constipation, Back: Positive for left lower back pain : Negative for injury, bleeding, discharge, and swelling, MS/Extremity: Negative for injury and deformity, Skin: Negative for injury, rash, and discoloration, Neuro: Positive for generalized weakness Exam: 20:17 Constitutional: This is a well developed, well nourished patient who is awake, alert, rn and in no acute distress. Head/Face: Normocephalic, atraumatic. ENT: Dry mucous membranes Neck: No meningismus Cardiovascular: Tachycardic, regular Respiratory: No increased work of breathing, no retractions or nasal flaring. Abdomen/GI: Soft, nontender Back: No spinal tenderness. MS/ Extremity: Pulses equal, no cyanosis. Neurovascular intact. Full, normal range of motion. Equal circumference. No calf tenderness or unilateral swelling Neuro: Awake and alert, GCS 15, oriented to person, place, time, and situation. Cranial nerves II-XII grossly intact. Motor strength 4/5 in all extremities. Sensory grossly intact. 21:06 ECG was reviewed by the Attending Physician. rn Vital Signs: 19:43 BP 141 / 69; Pulse 110; Resp 18; Temp 101.1; Pulse Ox 87% ; Weight 62.14 kg; Height 5 vc1 ft. 6 in. ; Pain 5/10; 20:58 BP 120 / 66; Pulse 94; Resp 19; Pulse Ox 96% on 2 lpm NC; vc1 21:30 BP 104 / 58; Pulse 80; Resp 13; Temp 99; Pulse Ox 95% on 2 lpm NC; vc1 22:00 BP 98 / 63; Pulse 78; Resp 16; Pulse Ox 95% on 2 lpm NC; vc1 23:00 BP 111 / 69; Pulse 76; Resp 15; Pulse Ox 94% ; 1 02/28 00:05 BP 102 / 78; Pulse 81; Resp 15; Pulse Ox 95% on 2 lpm NC; 1 02/27 19:43 Body Mass Index 22.11 (62.14 kg, 167.64 cm) 1 02/27 19:43 Pain Scale: Adult [facility] MDM: 02/27 19:49 Medical Screening Exam initiated rn 23:23 Data reviewed: vital signs, nurses notes, lab test result(s), EKG, radiologic studies, rn CT scan, plain films, and as a result, I will admit patient. Consideration of Admission/Observation Patient was admitted/placed on observation. Escalation of care including admission/observation considered. Independent interpretation of the following test(s) in the Emergency Department X-Ray: My interpretation is Chest x-ray images negative for pneumothorax or pneumonia per my interpretation. Care significantly affected by the following chronic conditions: Hypertension. Counseling: I had a detailed discussion with the patient and/or guardian regarding the historical points, exam findings, and any diagnostic results supporting the discharge/admit diagnosis, lab results, radiology results, the need for further work-up and treatment in the hospital. Response to treatment: the patient's symptoms have mildly improved after treatment, and as a result, I will admit patient. ED course: Chest x-ray negative. CT abdomen pelvis shows pyelonephritis, no other acute findings. Urine shows UTI. Lactate normal. Will admit for urinary tract infection. Blood cultures and lactate sent prior to antibiotics and Rocephin started.. 02/27 19:50 Order name: Blood Culture Adult (2) rn 02/27 19:50 Order name: CBC with Diff; Complete Time: 22:21 rn 02/27 19:50 Order name: CMP; Complete Time: 22:21 rn 02/27 19:50 Order name: Lactate w/ 2H reflex if indic.; Complete Time: 22:21 rn 02/27 19:50 Order name: Protime (+inr); Complete Time: 21:41 rn 02/27 19:50 Order name: Ptt, Activated; Complete Time: 21:41 02/27 19:50 Order name: Urinalysis w/ reflexes; Complete Time: 22:21 02/27 19:50 Order name: Flu; Complete Time: 21:41 02/27 19:50 Order name: Strep; Complete Time: 21:41 02/27 19:50 Order name: SARS RAPID; Complete Time: 21:41 02/27 20:59 Order name: Blood Culture [facility] 02/27 20:59 Order name: Blood Culture [facility] 02/27 21:15 Order name: Throat Culture [facility] 02/27 21:30 Order name: Manual Differential; Complete Time: 22:21 [facility] 02/27 22:20 Order name: Urine Culture [facility] 02/27 19:50 Order name: Chest Single View XRAY; Complete Time: 21:41 02/27 20:16 Order name: CT Abd/Pelvis - IV Contrast Only; Complete Time: 23:17 02/27 19:50 Order name: EKG; Complete Time: 19:50 02/27 19:50 Order name: Cardiac monitoring; Complete Time: 20:11 02/27 19:50 Order name: EKG - Nurse/Tech; Complete Time: 20:11 02/27 19:50 Order name: IV Saline Lock - Large Bore; Complete Time: 20:52 02/27 19:50 Order name: Labs collected and sent; Complete Time: 20:52 02/27 19:50 Order name: O2 Per Protocol; Complete Time: 20:11 02/27 19:50 Order name: O2 Sat Monitoring; Complete Time: 20:11 02/27 19:50 Order name: Vital Signs; Complete Time: 20:11 02/27 21:20 Order name: Misc. Order: recollect labs; Complete Time: 21:20 vc1 EC:06 Rate is 103 beats/min. Rhythm is regular. QRS [place] is Normal. [place] interval is normal. rn QRS interval is normal. QT interval is normal. No Q waves. T waves are Normal. No ST changes noted. Clinical impression: Sinus tachycardia. Interpreted by me. Reviewed by me. Administered Medications: 20:57 Drug: Ibuprofen PO 600 mg PO once Route: PO; vc1 22:30 Follow up: Response: No adverse reaction; Temperature is decreased vc1 20:58 Drug: Acetaminophen PO 650 mg PO once Route: PO; vc1 21:30 Follow up: Response: No adverse reaction; Temperature is decreased vc1 22:40 Drug: NS 0.9% IV 1000 ml IV at 1000 ml once; to be given as a bolus over 60 minutes vc1 Route: IV; Rate: 1000 ml; Site: right forearm; 23:40 Follow up: IV Status: Completed infusion; IV Intake: 1000ml vc1 22:40 Drug: Rocephin IV 1 grams IV at calculated rate once; Given slow IV push per pharmacy vc1 instructions Route: IV; Rate: calculated rate; Site: right forearm; 22:45 Follow up: IV Status: Completed infusion; IV Intake: 50ml vc1 Disposition Summary: 02/28/24 23:25 Hospitalization Ordered Notes: Hospitalization Status: Inpatient Admission rn Provider: Pacheco Cruz rn Location: Telemetry/[facility]Sur (Inpatient) rn Condition: Stable rn Problem: new rn Symptoms: have improved rn Bed/Room Type: Standard rn Room Assignment: 228(02/28/24 23:35) sp Diagnosis - UTI/ Urinary tract infection, site not specified rn - Severe sepsis without septic shock rn Forms: - Medication Reconciliation Form rn - SBAR form rn - Leadership Thank You Letter business services intern time excluding procedures: 23:23 Critical care time: Bedside Care: 35 minutes. 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 vc1 20:11 20:05 PMHx: Hallucinations; vc1 vc1 20:11 20:05 PMHx: Diabetes mellitus; vc1 vc1 20:11 20:05 PMHx: Chronic obstructive lung disease; vc1 vc1 20:11 20:05 PMHx: Gastroesophageal reflux disease; vc1 1 20:11 20:05 PMHx: Hypothyroidism; [email or web address] 20:19 20:17 Constitutional: Negative for fever, chills, and weight loss, ENT: Positive for rn sinus congestion Neck: Negative for injury, pain, and swelling, Cardiovascular: Negative for chest pain, palpitations, and edema, Respiratory: Negative for shortness of breath, cough, wheezing, and pleuritic chest pain, Abdomen/GI: Negative for abdominal pain, nausea, vomiting, diarrhea, and constipation, Back: Positive for left lower back pain MS/Extremity: Negative for injury and deformity, Skin: Negative for injury, rash, and discoloration, Neuro: Positive for generalized weakness rn 20:58 19:50 Accucheck ordered. rn vc1 21:05 20:41 BLOOD CULTURE*+BA.LAB.BRZ ordered. EDMS EDMS 23:35 23:25 rn sp
--- NOTE | 2024-02-28 23:26 | ER ---
Nurse's Notes [facility] Name: Mita Mckeon Age: 89 yrs Sex: Female : 1935 Arrival Date: 02/28/2024 Time: 19:43 Bed 3 Private MD: Diagnosis: UTI/ Urinary tract infection, site not specified;Severe sepsis without septic shock Presentation: 02/27 19:43 Chief complaint: EMS states: Called to [facility] unable to get up. When we arrived vc1 she had a fever of 103 and could not stand even with out assistance. 19:43 Method Of Arrival: EMS: [facility] vc1 19:43 Coronavirus screen: Client denies travel out of the [place] in the last 14 days. vc1 congestion, fever, Client presents with at least one sign or symptom that may indicate coronavirus-19. Ebola Screen: Patient negative for fever greater than or equal to 101.5 degrees Fahrenheit, and additional compatible Ebola Virus Disease symptoms Patient denies exposure to infectious person. Patient denies travel to an Ebola-affected area in the 21 days before illness onset. No symptoms or risks identified at this time. Initial Sepsis Screen: Does the patient meet any 2 criteria? Temp <36.0*C (96.8*F)) or > 38.3*C (100.9*F). HR > 90 bpm. Yes Does the patient have a suspected source of infection? No. Patient's initial sepsis screen is negative. Risk Assessment: Do you want to hurt yourself or someone else? Patient reports no desire to harm self or others. Onset of symptoms was February 28, 2024. Care prior to arrival: None. Activity prior to arrival: None. Mechanism of Injury: No Mechanism of Injury. Transition of care: patient was received from another setting of care (long-term care facility), [facility]. 19:43 Acuity: EMELY 3 vc1 Triage Assessment: 19:47 General: Appears in no apparent distress. uncomfortable, slender, well groomed, well vc1 developed, well nourished, Behavior is calm, cooperative, appropriate for age. Pain: Complains of pain in lateral aspect of left thigh Pain does not radiate. Pain currently is 5 out of 10 on a pain scale. Quality of pain is described as sharp. EENT: Reports nasal congestion. Neuro: Level of Consciousness is awake, alert, obeys commands, Oriented to person, place, time, situation, Appropriate for age. Cardiovascular: Heart tones S1 S2 present Capillary refill < 3 seconds Patient's skin is warm and dry. Rhythm is sinus tachycardia. Respiratory: Airway is patent Respiratory effort is even, unlabored, Respiratory pattern is regular, symmetrical, Breath sounds are clear bilaterally. GI: Abdomen is flat, non-distended, Abd is soft and non tender. : No signs and/or symptoms were reported regarding the genitourinary system. Derm: Skin is intact, is healthy with good turgor, Skin is dry, Skin is normal, Skin temperature is hot. Musculoskeletal: Circulation, motion, and sensation intact. Reports weakness in right leg and left leg pain in lateral aspect of left thigh Pain is 5 out of 10 on a pain scale. Historical: - Home Meds: 20:52 levothyroxine 50 mcg capsule daily [Active]; lisinopril 20 mg Oral tablet 2 times per vc1 day [Active]; spironolactone 25 mg Oral tablet daily [Active]; pantoprazole 40 mg oral tablet, delayed release (enteric coated) daily [Active]; Lipitor 40 mg Oral tablet every evening [Active]; baclofen 10 mg Oral tablet daily [Active]; ropinirole 1 mg oral tablet daily [Active]; amlodipine 5 mg tablet nightly [Active]; Metamucil Smooth Texture Oral daily [Active]; Estraderm TD vaginal cream 3X week [Active]; Lexapro 5 mg Oral tablet daily [Active]; Vitamin D Oral daily [Active]; biotin 1,000 mcg oral tablet,chewable [Active]; CoQ-10 100 mg oral capsule daily [Active]; tramadol 50 mg Oral tablet as needed [Active]; melatonin 5 mg Oral capsule nightly [Active]; gabapentin 300 mg oral capsule 2 caps 3 times per day [Active]; 21:01 Colace 100 mg oral capsule 2 cap every day at bedtime [Active]; vc1 - PMHx: 20:09 Hypertensive disorder; Cerebrovascular accident; Transient cerebral ischemia; vc1 - PSHx: 20:09 None; vc1 - Immunization history:: Adult Immunizations up to date. - Infectious Disease History:: Denies. - Social history:: Smoking status: Patient denies any tobacco usage or history of. - Family history:: not pertinent. - Hospitalizations: : No recent hospitalization is reported. Screenin:43 [facility] ED Fall Risk Assessment (Adult) History of falling in the last 3 months, vc1 including since admission Yes- fall prone (multiple falls) (3 pts) Confusion or Disorientation No (0 pts) Intoxicated or Sedated No (0 pts) Impaired Gait Yes (1 pt) Mobility Assist Device Used No (0 pt) Altered Elimination No (0 pt) Score/Fall Risk Level 3 or more points = High Risk Oriented to surroundings, Maintained a safe environment, Educated pt \T\ family on fall prevention, incl call for assistance when getting out of bed, Hourly rounding (assess needs \T\ fall precautionary measures) done, Offered frequent toileting (1:1 observation), Utilized family, sitter, or virtual gas station cashier as indicated. Abuse screen: Denies threats or abuse. 19:43 Nutritional screening: No deficits noted. Tuberculosis screening: No symptoms or risk vc1 factors identified. Assessment: 20:59 Reassessment: Patient appears in no apparent distress at this time. No changes from vc1 previously documented assessment. Patient and/or family updated on plan of care and expected duration. Pain level reassessed. Patient is alert, oriented x 3, equal unlabored respirations, skin warm/dry/pink. 22:13 Reassessment: Patient appears in no apparent distress at this time. No changes from vc1 previously documented assessment. Patient and/or family updated on plan of care and expected duration. Pain level reassessed. Patient is alert, oriented x 3, equal unlabored respirations, skin warm/dry/pink. : Urine is cloudy, urine has strong odor. Vital Signs: 19:43 BP 141 / 69; Pulse 110; Resp 18; Temp 101.1; Pulse Ox 87% ; Weight 62.14 kg; Height 5 vc1 ft. 6 in. ; Pain 5/10; 20:58 BP 120 / 66; Pulse 94; Resp 19; Pulse Ox 96% on 2 lpm NC; vc1 21:30 BP 104 / 58; Pulse 80; Resp 13; Temp 99; Pulse Ox 95% on 2 lpm NC; vc1 22:00 BP 98 / 63; Pulse 78; Resp 16; Pulse Ox 95% on 2 lpm NC; vc1 23:00 BP 111 / 69; Pulse 76; Resp 15; Pulse Ox 94% ; vc1 02/28 00:05 BP 102 / 78; Pulse 81; Resp 15; Pulse Ox 95% on 2 lpm NC; vc1 02/27 19:43 Body Mass Index 22.11 (62.14 kg, 167.64 cm) vc1 02/27 19:43 Pain Scale: Adult vc1 ED Course: 02/27 19:47 Patient arrived in ED. vc1 19:47 Patient has correct armband on for positive identification. Bed in low position. Call vc1 light in reach. Side rails up X2. Adult w/ patient. youth nutritional monitor on. Pulse ox on. NIBP on. 19:49 Yandel Barrera MD is Attending Physician. rn 19:50 Provided Education on: call light. vc1 20:05 Triage completed. vc1 20:11 Arm band placed on right wrist. vc1 20:28 Beth Pritchett, VALENTE is Primary Nurse. vc1 20:30 EKG done, by ED staff, reviewed by Yandel Barrera MD. oe 20:38 Chest Single View XRAY In Process Unspecified. EDMS 20:50 Inserted saline lock: 22 gauge in right forearm, using aseptic technique. Blood oe collected. Flushed with 10 mL NS. 20:51 SARS RAPID Sent. oe 20:51 Strep Sent. oe 20:51 Flu Sent. oe 20:51 Blood Culture Adult (2) Sent. oe 20:52 CBC with Diff Sent. oe 20:52 CMP Sent. oe 20:52 Lactate w/ 2H reflex if indic. Sent. oe 20:52 Protime (+inr) Sent. oe 20:52 Ptt, Activated Sent. oe 22:25 CT Abd/Pelvis - IV Contrast Only In Process Unspecified. EDMS 23:24 Pacheco Cruz MD is Hospitalizing Provider. rn 02/28 00:36 No provider procedures requiring assistance completed. Patient admitted, IV remains in vc1 place. Administered Medications: 02/27 20:57 Drug: Ibuprofen PO 600 mg PO once Route: PO; vc1 22:30 Follow up: Response: No adverse reaction; Temperature is decreased vc1 20:58 Drug: Acetaminophen PO 650 mg PO once Route: PO; vc1 21:30 Follow up: Response: No adverse reaction; Temperature is decreased vc1 22:40 Drug: NS 0.9% IV 1000 ml IV at 1000 ml once; to be given as a bolus over 60 minutes vc1 Route: IV; Rate: 1000 ml; Site: right forearm; 23:40 Follow up: IV Status: Completed infusion; IV Intake: 1000ml vc1 22:40 Drug: Rocephin IV 1 grams IV at calculated rate once; Given slow IV push per pharmacy vc1 instructions Route: IV; Rate: calculated rate; Site: right forearm; 22:45 Follow up: IV Status: Completed infusion; IV Intake: 50ml vc1 Medication: 22:11 VIS not applicable for this client. vc1 Intake: 22:45 IV: 50ml; Total: 50ml. vc1 23:40 IV: 1000ml; Total: 1050ml. vc1 Outcome: 23:25 Decision to Hospitalize by Provider. rn 02/28 00:37 Admitted to Med/surg accompanied by tech, via stretcher, room 228, with oxygen, with vc1 chart, Condition: good Instructed on the need for admit, 00:37 Patient left the ED. vc1 Signatures: Dispatcher [employer] EDMS Yandel Barrera MD MD rn Espinosa, [place] oe Calcote, Vanessa, RN RN vc1 Corrections: (The following items were deleted from the chart) 02/27 20:11 20:05 Allergies: Sulfa (Sulfonamide Antibiotics); vc1 vc1 : 20:05 PMHx: Anxiety; vc1 vc1 : 20:05 PMHx: Depressive disorder; vc1 vc1 : 20:05 PMHx: hyperlipemia; vc1 vc1 : 20:05 PMHx: metablolic encephalopathy; vc1 vc1 : 20:05 PMHx: Hallucinations; vc1 vc1 : 20:05 PMHx: Diabetes mellitus; vc1 vc1 20: 20:05 PMHx: Chronic obstructive lung disease; vc1 vc1 : 20:05 PMHx: Gastroesophageal reflux disease; vc1 vc1 :11 20:05 PMHx: Hypothyroidism; vc1 vc1 22:19 21:52 BP 104 / 58; Pulse 80bpm; Resp 13bpm; Pulse Ox 95% 2 lpm Nasal Cannula; Temp 99F; vc1 vc1
[2024-02-29 06:15] VITALS: BMI 20.9
[2024-02-29] MEDS: FLU (Fluarix Triv) TS24-25(6MOS UP)/PF 45 MCG/0.5 ML Syringe IM ONE (07:30)
[2024-02-29] MEDS: PNEUMOCOCCAL VACCINE 0.5 ML IMVAC ONE (07:59)
[2024-02-29] MEDS ORDERED: ONDANSETRON 4 MG/2 ML VIAL IV PRN (08:01)
[2024-02-29 08:25] LABS: Absolute Eosinophils 0.1 K/uL (0-0.5); Absolute Lymphocytes (CBC) 0.6 K/uL (0.7-4.9); Absolute Monocytes 1.3 K/uL (0.1-1.3); Absolute Neutrophil 9.8 K/uL (1.8-8.0); Basophils % 0.2 % (0-1.3); Eosinophils % 0.5 % (0-4.4); Hematocrit 34.5 % (36.0-45.0); Hemoglobin 11.7 g/dL (12.0-15.0); Lymphocytes % 5.3 % (15.3-44.8); MCHC 34.1 g/dL (32.0-36.0); MCV 93.9 fL (80-100); MPV 8.9 fL (7.6-11.3); Monocytes % 11.1 % (3.3-12.3); Neutrophils % 82.9 % (41.7-73.7); Nucleated Red Blood Cells % 0.1 % (0-0); Platelets 155 thou/uL (152-406); RBC Red Blood Cell Count 3.67 M/uL (3.86-4.86); Red Cell Distribution Width 13.1 % (12.1-15.2)
[2024-02-29 08:33] LABS: Anion Gap 7.9 mEq/L (5.0-15.0); Potassium 4.9 mEq/L (3.5-5.1)
[2024-02-29] MEDS: PSYLLIUM FT SCH (09:00)
[2024-02-29] MEDS: BIOTIN 10000 MCG PO SCH (09:00)
[2024-02-29] MEDS ORDERED: PSYLLIUM 1 PKT PO SCH (09:00)
[2024-02-29] MEDS: ESCITALOPRAM OXALATE 5 MG PO SCH (09:00)
[2024-02-29] MEDS: lisinopriL 20 MG TAB PO SCH (09:00)
[2024-02-29] MEDS: CEFTRIAXONE 1,000 MG in NA CHLORIDE 0.9% 50 ML IVPB SCH (09:36)
[2024-02-29] MEDS: AMLODIPINE 5 MG TAB PO SCH (09:36)
[2024-02-29] MEDS: LEVOTHYROXINE SOD 0.05 MG TABLET PO SCH (09:36)
[2024-02-29] MEDS: NA CHLORIDE 0.9% 1,000 ML IV SCH (09:36)
[2024-02-29] MEDS: VITAMIN D 5,000 UNIT CAP PO SCH (09:36)
[2024-02-29] MEDS: PANTOPRAZOLE 40MG TABLET PO SCH (09:37)
[2024-02-29] MEDS: GABAPENTIN 300 MG CAP PO SCH (09:37)
[2024-02-29] MEDS: ENOXAPARIN 30 MG/0.3 ML SQ SCH (09:37)
--- NOTE | 2024-02-29 10:44 | P.CNS ---
Date of Consult: 02/29/24 Chief Complaint: weakness History of Present Illness: Patient with PMH of HTN, Stroke/TIA presented with generalized weakness, and mainly weakness of the legs, it is hard for her to stand and keep balance, denies claudicating, no syncope. Allergies nabumetone [From Relafen] Allergy (Verified 02/29/24 04:42) Itching/Hives/Rash blood thinners Allergy (Uncoded 02/29/24 04:43) Itching/Hives/Rash maxzide drugs Allergy (Uncoded 02/29/24 04:42) Itching/Hives/Rash Home medications list reviewed: Yes Home Medications: Acetaminophen [Tylenol] 325 mg PO PRN 02/29/24 Amlodipine [Norvasc*] 5 mg PO DAILY 02/29/24 Atorvastatin Calcium [Lipitor] 40 mg PO DAILY 02/29/24 Baclofen 10 mg PO DAILY 02/29/24 Biotin 1,000 mcg PO DAILY 02/29/24 Cholecalciferol (Vitamin D3) [Vitamin D3] 125 mcg PO DAILY 02/29/24 Escitalopram Oxalate [Lexapro] 5 mg PO DAILY 02/29/24 Gabapentin 300 mg PO TID 02/29/24 Levothyroxine Sodium 50 mcg PO DAILY 02/29/24 Lisinopril [Zestril] 20 mg PO BID* 02/29/24 Melatonin 5 mg PO BEDTIME 02/29/24 Mv-Mn/Folic AC/Calcium/Vit K1 [Women's 50 Plus Multivit Tab] 50 mg PO DAILY 02/29/24 Dennis-3/Dha/Epa/Fish Oil/Coq10 [Coqmax-Dennis 100 mg Softgel] 100 mg PO DAILY 02/29/24 Pantoprazole [Protonix Tab*] 40 mg PO DAILY 02/29/24 Psyllium Husk [Metamucil] 0.4 gm PO DAILY 02/29/24 Ropinirole HCl 1 mg PO DAILY 02/29/24 Spironolactone 25 mg PO DAILY 02/29/24 Tramadol HCl [Ultram] 50 mg PO PRN PRN 02/29/24 - Past Medical/Surgical History Diabetic: No - Social History Alcohol use: No CD- Drugs: No Caffeine use: No Place of Residence: Home Review of Systems 10-point ROS is otherwise unremarkable Physical Examination Temp Pulse Resp BP Pulse Ox 98.6 F 71 16 105/51 L 98 02/29/24 04:00 02/29/24 04:00 02/29/24 04:00 02/29/24 04:00 02/29/24 04:00 General: Alert, In no apparent distress HEENT: Atraumatic, PERRLA, Mucous membr. moist/pink, EOMI, Sclerae nonicteric Neck: Supple, 2+ carotid pulse no bruit, No LAD, Without JVD or thyroid abnormality Respiratory: Clear to auscultation bilaterally, Normal air movement Cardiovascular: Regular rate/rhythm, Normal S1 S2 Gastrointestinal: Normal bowel sounds, No tenderness Musculoskeletal: No tenderness Integumentary: No rashes Neurological: Normal gait, Normal speech, Normal tone, Normal affect Lymphatics: No axilla or inguinal lymphadenopathy Laboratory Data (last 24 hrs) 02/28/24 02/28/24 02/28/24 21:15 21:15 21:15 WBC 15.90 H Hgb 11.4 L Hct 32.9 L Plt Count 161 PT 13.1 H INR 1.18 APTT 28.5 Sodium 129 L Potassium 4.1 BUN 28 H Creatinine 1.22 H Glucose 121 H Total Bilirubin 1.4 H AST 47 H ALT 89 H Alkaline Phosphatase 218 H - Problems (1) PAD (peripheral artery disease) Current Visit: Yes Status: Acute Plan: Patient arterial duplex shows significant right SFA disease with left below knee disease, patient is not that functional to assess for claudications, but there is no rest leg pain. continue ASA 81 mg daily Lipitor 40 mg daily outpatient follow up. (2) Abdominal aortic aneurysm (AAA) 3.0 cm to 5.0 cm in diameter in female Current Visit: Yes Status: Acute Plan: Abdominal MRI shows dilated lower abdominal aorta, measuring 5.5x4.8 cm in diameter will need outpatient Vascular surgery referral control BP aggressively. continue statin (3) HTN (hypertension) Current Visit: Yes Status: Acute Plan: BP is well controlled. continue Norvasc 5 mg daily Lisinopril 20 mg po BID
[2024-02-29] MEDS: ACETAMINOPHEN 500 MG TAB PO PRN (11:36)
--- NOTE | 2024-02-29 12:04 | EKG ---
Test Date: 2024-02-28 Test Time: 19:59:37 Maker Up Folding: EDEN MEASUREMENT RESULTS: Intervals: Rate: 103 CO: 148 QRSD: 76 QT: 344 QTc: 450 [place]: P: 74 CO: 148 QRS: 3 T: 88 INTERPRETIVE STATEMENTS: Sinus tachycardia Nonspecific ST abnormality Abnormal ECG Compared to ECG 01/15/2024 09:04:52 ST (T wave) deviation now present Sinus rhythm no longer present Electronically Signed On 02-29-24 12:02:10 HEART SURGEON by Marcus Michael
[2024-02-29] MEDS: ROPINIROLE HCL 1 MG TAB PO SCH (20:27)
[2024-02-29] MEDS: DOCUSATE NA 100 MG CAP PO SCH (20:27)
[2024-02-29] MEDS: MELATONIN 5 MG TABLET PO SCH (20:27)
[2024-02-29] MEDS: ATORVASTATIN 40 MG TAB PO SCH (20:28)
[2024-02-29] MEDS: BACLOFEN 10 MG TAB PO SCH (20:28)
--- NOTE | 2024-03-01 04:23 | HP ---
Date of Admission: 02/28/2024 Chief Complaint: Low-grade fever and generalized weakness. History Of Present Illness: This is an 89-year-old female patient who started to have low-grade feve r mostly at night time about 3 days ago or so and yesterday she felt worse with significant generaliz ed weakness to the extent that she had hard time getting out of bed, standing or walking. Denies any fall or injury. She was brought into emergency room with these complaints and after she was evaluat ed, she was admitted to the hospital with urinary tract infection and sepsis. IV fluid and IV antibi otic were started in the emergency room after appropriate cultures were obtained and I saw her this m orning. She denies any abdominal pain, nausea, vomiting. No chest pain, no shortness of breath. Review of Systems: Constitutional: As mentioned above. All other systems reviewed and negative. Allergies: MAXZIDE DIURETIC CAUSING RASH. Medications: Atorvastatin 40 mg p.o. daily, which she just started recently after last office visit, as I had suggested her to take it, but at the time of office visit, she told me that she was not tomy e about it, but after office visit, she thought about it and started taking it. Amlodipine 5 mg cynthia y, baclofen 10 mg daily at bedtime, ropinirole 1 mg daily at bedtime, spironolactone 25 mg daily, esc italopram 5 mg daily, levothyroxine 50 mcg daily, gabapentin 300 mg 3 times a day, lisinopril 20 mg 2 times a day, multivitamin daily, pantoprazole 40 mg daily. Past Medical History: Significant for allergic rhinitis; hypertension; hyperlipidemia; peripheral va scular disease, which was recently diagnosed; hypothyroidism; COVID-19 infection in the past; gastroe sophageal reflux disease; bladder cancer; urinary incontinence; anxiety; depression; insomnia; migrai ne; history of TIA; and hemorrhagic stroke. The patient had a TIA in 1991 and 2013 and hemorrhagic s troke was May 2020 and after that she was told not to take any aspirin. The patient also had walton bdural hematoma after a fall and head injury and this was in 2020. Restless legs syndrome, cataract, and prior history of recurrent sinus infections. Past Surgical History: Significant for valerie hole surgery in 2013; cataract surgery in 1999 and 2009; tonsillectomy; hysterectomy; removal of malignant tumor from bladder due to bladder cancer in 2016; pelvic floor surgery in February 02, 2024; back surgery; removal of skin cancer in form of basal cell carcinoma excision. Family History: Father had Parkinson disease. Mother had asthma and congestive heart failure. Sister had brain cancer. Social History: Negative for smoking, alcohol use. Physical Examination: Vital Signs: Last temperature this morning 98.6, pulse 71, respiratory rate 16, blood pressure 105/5 1, oxygen saturation 98% on 2 L nasal cannula oxygen. Height 5 feet 6 inches, weight 130 pounds. Wh en patient came into emergency room last night, temperature was 101.1, blood pressure 141/69, oxygen saturation was 87% on room air, pulse rate 110. General: Awake, alert, oriented, not in distress. HEENT: Head atraumatic, normocephalic. Conjunctivae nonerythematous. Sclerae white. Mouth, no thr ush or edema noted. Ears/Nose, no mass, lesion, discharge noted. Neck: Supple. No JVD, lymph nodes, bruit, thyromegaly noted. Lungs: Bilateral good equal air entry. Clear to auscultation. No rhonchi. No rales. Heart: Normal heart sounds, no murmur or gallop. Abdomen: Soft, bowel sounds normal. No guarding, rigidity, tenderness, mass, hepatosplenomegaly, dis tention, or bruit noted. Extremities: No leg edema. No calf tenderness. Skin: No rash, ulcer, cellulitis. Lymphatics: No lymph node enlargement in neck, supraclavicular, infraclavicular region. Neuro: No focal neurological deficit. Chest: Unremarkable. External Genitalia: Deferred. Rectal: Deferred. Laboratory Data: WBC 15.9, hemoglobin 11.4, platelets 161. Sodium 129, potassium 4.1, chloride 99, bicarb 23, BUN 28, creatinine 1.22, glucose 121. Lactic acid less than 0.8. AST 47, ALT 89, alkalin e phosphatase 218, total bilirubin 1.4. Urinalysis, leukocyte esterase 500, wbc's more than 50. COV ID-19 test negative. Chest x-ray, no acute cardiopulmonary changes. CAT scan of the abdomen and pel vis shows patchy enhancement involving mid to lower renal cortex concerning for pyelonephritis. No e vidence of obstruction or kidney stone and presence of abdominal aortic aneurysm measuring 5.5 x 4.8 cm and tiny layering gallstones. Impression: 1.Sepsis. 2.Acute pyelonephritis. 3.Hyponatremia, unspecified. 4.Anemia, unspecified. 5.Hypothyroidism. 6.Hypertension. 7.Hyperlipidemia. 8.Peripheral vascular disease. 9.Abdominal aortic aneurysm. 10.Gallstones, asymptomatic. 11.Anxiety. 12.Insomnia. 13.Restless legs syndrome. 14.Gastroesophageal reflux disease. Plan: We will go ahead and admit the patient to hospital for further evaluation and management of th is problem. The patient is appropriate for inpatient and is [facility] DVT prophylaxis will be given using Lovenox. Consult Physical Therapy to help ambulate the patie nt. The patient was started on IV antibiotic, ceftriaxone, in the emergency room and we will continu e that. Follow up on urine culture and blood culture and once the final result is available, we will decide about culture specific antibiotics. IV fluid will be continued per order. For hypertension, we will continue antihypertensive medication and hold blood pressure medication if systolic blood pr essure less than 130. For hyperlipidemia, we will continue her statin therapy per order and no need for further intervention. For hypothyroidism, she is on levothyroxine, which will be continued per o rder and no need for further intervention. For gastroesophageal reflux disease, the patient is on pa ntoprazole, which will be continued and no need for further intervention. The patient has abdominal aortic aneurysm, which is a new diagnosis and for peripheral vascular disease, she was recently refer red to teamsite developer on outpatient basis and she has not had appointment with teamsite developer yet, so I arlene osorio requested consultation from our teamsite developer to see patient for her abdominal aortic aneurysm, as well as for her peripheral vascular disease. For restless legs syndrome, we will continue her on ro pinirole and no need for any further intervention on it. I have discussed with the patient regarding advance directives and as per her decision, she has clearly stated in the event of cardiopulmonary a rrest, she does not want any heroic measures like CPR, defibrillation, or ventilator support and DNR order was written in the chart. We will repeat blood work tomorrow morning and I will see her tomorr ow morning for followup. Total time spent today was 85 minutes that includes communication with the emergency room physician, review of emergency room record, performing today's evaluation and management, review of last office visit record from 02/18/2024. PARIS/REGLA Voice ID: [id number]
[2024-03-02 00:56] VITALS: O2SAT 97
--- NOTE | 2024-03-02 03:23 | PN ---
Date of Progress Note: 03/01/2024 Subjective: The patient was seen this morning for followup. Vital signs reviewed. Denies any chest pain, shortness of breath, nausea, vomiting. Objective: HEENT: Unremarkable. Lungs: Clear to auscultation. Heart: Sounds normal. Abdomen: Soft. Bowel sounds normal. No guarding, rigidity, tenderness, distention. Extremities: No leg edema. Impression: 1.Sepsis. 2.Acute pyelonephritis. 3.Hypertension. 4.Hyperlipidemia. Plan: We will go ahead and continue current antibiotic. The patient's blood culture has come back p ositive. Definite identification and sensitivity result is pending. Urine culture is pending as wel l. We will follow up on culture results. Hopefully, once we get the culture result back, then we ca n plan to discharge her to go home with culture specific antibiotic. Meanwhile, we will continue cur rent empiric antibiotic. Continue current antihypertensive medication. I will see her tomorrow for followup. Spray Gun Repairer Helper has evaluated her for peripheral vascular disease and abdominal aortic aneury sm, and the patient was encouraged to follow up with sizer machine as per his recommendation upon disc harge. PARIS/MODL Voice ID: [id number] Report ID: [id number]
[2024-03-02 05:48] LABS: Absolute Basophils 0.1 K/uL (0-0.5); Absolute Eosinophils 0.2 K/uL (0-0.5); Absolute Lymphocytes (CBC) 0.7 K/uL (0.7-4.9); Absolute Monocytes 0.6 K/uL (0.1-1.3); Absolute Neutrophil 4.7 K/uL (1.8-8.0); Basophils % 0.9 % (0-1.3); Eosinophils % 3.1 % (0-4.4); Hematocrit 34.2 % (36.0-45.0); Hemoglobin 11.5 g/dL (12.0-15.0); Lymphocytes % 10.8 % (15.3-44.8); MCH 31.8 pg (27.0-35.0); MCHC 33.5 g/dL (32.0-36.0); MCV 94.8 fL (80-100); MPV 9.4 fL (7.6-11.3); Monocytes % 9.5 % (3.3-12.3); Neutrophils % 75.7 % (41.7-73.7); Platelets 183 thou/uL (152-406); RBC Red Blood Cell Count 3.61 M/uL (3.86-4.86); Red Cell Distribution Width 13.3 % (12.1-15.2)
[2024-03-02 05:59] LABS: Anion Gap 8.8 mEq/L (5.0-15.0); Potassium 3.8 mEq/L (3.5-5.1)
[2024-03-02] MEDS: SPIRONOLACTONE 25 MG TABLET PO SCH (08:26)
[2024-03-02] MEDS: levoFLOXacin 500 MG TAB PO ONE (08:26)
[2024-03-02 09:12] VITALS: BP 153/90; TEMP 97.7
--- NOTE | 2024-03-02 23:58 | DS ---
Date of Discharge: 03/02/2024 Disposition: Discharged to go home. Physical Examination: HEENT: Unremarkable. Lungs: Clear to auscultation. Heart: Sounds normal. Abdomen: Soft. Bowel sounds normal. No guarding, rigidity, tenderness, distention. Extremities: No leg edema. Discharge Medications And Instructions: Continue all prior home medications except following changes : 1.Change gabapentin 300 mg take 1 capsule by mouth in the morning and 2 capsules at bedtime (please note the patient was taking 1 capsule by mouth 2 times a day prior to this hospital admission). 2.Start levofloxacin 500 mg take 1 tablet by mouth daily for 2 weeks. 3.Follow up at my office next week on 03/08/2024 or 03/09/2024. 4.Follow up with motion picture projectionist apprentice, Dr. Michael, as soon as possible as per his instruction. Laboratory Data: Urine culture and blood culture grew E. coli and it was sensitive to ceftriaxone th at the patient received during this hospitalization and it is also sensitive to Levaquin, Bactrim, Ci pro, ceftazidime, gentamicin, Zosyn, tobramycin, etc. Her blood culture and urine culture both has g bossmann E. coli bacteria with similar sensitivity result. Upon admission, WBC shows 15.9, hemoglobin 11 .4, platelets 161. Today, WBC 6.2, hemoglobin 11.5, platelets 183. Upon admission, sodium 129, pota ssium 4.1, chloride 99, bicarb 23, BUN 28, creatinine 1.22, glucose 121, lactic acid less than 0.8, t otal bilirubin 1.4, AST 47, ALT 89, alkaline phosphatase 218. Today, sodium 139, potassium 3.8, chlo ride 108, bicarb 26, BUN 16, creatinine 0.97, glucose 102. Hospital Course: This is an 89-year-old female patient, who came into emergency room with complaints of low-grade fever and generalized weakness. Please see dictated H and P for more information. Aft er the patient was evaluated and admitted to the hospital, she was treated for urinary tract infectio n and sepsis. Her blood culture and urine culture that was collected in the emergency room, E. coli, and we did get final result back today. The patient has received ceftriaxone for her infection duri ng this hospitalization and this E. coli is sensitive to ceftriaxone. Overall, she is feeling a lot better. She is ambulating well. Generalized weakness problem has improved. She has neuropathy prob tucker and takes gabapentin prescription that she has is for 300 mg capsule 1 capsule to be taken 3 time s a day, but she is taking only twice a day and she reports having lot more trouble with her neuropat hy at nighttime, so what I have suggested her to take 1 capsule in the morning and to take 2 capsules at bedtime. Cardiology consultation was requested from Dr. Michael for aneurysm of descending thorac ic and upper abdominal aorta as well as peripheral vascular disease and he has advised the patient to follow up with him as soon as possible on outpatient basis, so he can provide appropriate recommenda tion and referral for intervention for this peripheral vascular disease as well as aortic aneurysm pr oblem. The patient has appointment to follow up with her urogynecologist sometime within next 1 to 2 weeks and she was encouraged to keep that appointment as well. Final Diagnoses: 1.Sepsis, organism E. coli. 2.Acute pyelonephritis, left kidney. 3.Hyponatremia, unspecified. 4.Anemia, unspecified. 5.Hypothyroidism. 6.Hypertension. 7.Hyperlipidemia. 8.Peripheral vascular disease. 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 10.Gallstones, asymptomatic. 11.Anxiety. 12.Insomnia. Total time spent today was 45 minutes. PARIS/MODL Voice ID: [id number] Report ID: [id number]
== END 2024-03-02 10:00 | disposition home or self-care (01) | DRG 872 ==
LOC: ER 19:43 → ERHOLD 23:26 → 2ND 02-29 00:15
PROVIDERS: ADMIT Internal Medicine; ATTEND Internal Medicine
DX: A41.51 Sepsis due to Escherichia coli [E. coli] (principal); E87.1 Hypo-osmolality and hyponatremia; N10 Acute pyelonephritis; R65.20 Severe sepsis without septic shock; I10 Essential (primary) hypertension; Z79.899 Other long term (current) drug therapy; Z86.73 Personal history of transient ischemic attack (TIA), and cerebral infarction without residual deficits; Z79.890 Hormone replacement therapy; I73.9 Peripheral vascular disease, unspecified; I71.40 Abdominal aortic aneurysm, without rupture, unspecified; Z86.16 Personal history of COVID-19; E78.5 Hyperlipidemia, unspecified; E03.9 Hypothyroidism, unspecified; K21.9 Gastro-esophageal reflux disease without esophagitis; Z85.51 Personal history of malignant neoplasm of bladder; G25.81 Restless legs syndrome; Z85.828 Personal history of other malignant neoplasm of skin; Z11.52 Encounter for screening for COVID-19; D64.9 Anemia, unspecified; K80.20 Calculus of gallbladder without cholecystitis without obstruction; F41.9 Anxiety disorder, unspecified; G47.00 Insomnia, unspecified; Z66 Do not resuscitate
CPT/HCPCS: 36415; 71045; 74177; 80048; 80053; 81001; 83605; 85025; 85610; 85730; 87040; 87070; 87077; 87081; 87086; 87088; 87186; 87205; 87804; 87811; 93005; 96361; 96374; 97116; 97161; 97530; 99285; J0696; J1650; J7030; Q9967